=== PATIENT | female | born 1970 | race Caucasian/White ===

== ENCOUNTER 2018-03-31 03:06 | Emergency (ER) | payer OTHER ==
[~2018-03-31] VITALS: Ht 170.2 cm; Wt 61.2 kg
[~2018-03-31 03:06] MED LIST: ALBU90OI INH; CLON.1 PO; ESTROVEN ENERG1 EACH PO; GLIP5 PO; HYDACE10B PO; HYDHCL25 PO; LEVO750 PO; METF500 PO; METH10 PO; PREG100 PO; Pepcid40 MG PO; Zofran Odt4 MG SL
[2018-03-31] MEDS ORDERED: HYDMOR4 PO (03:20)
[2018-03-31] MEDS ORDERED: INSULANPEN (03:24)
[2018-03-31 03:25] LABS: Calcium, Ionized (POC) 1.13 mmol/L (1.10-1.46); Chloride (POC) 98 mmol/L (98-108); Creatinine (POC) 0.5 mg/dL (0.6-1.0); Glucose (ISTAT POC) 348 mg/dL (70-99); Potassium (POC) 3.4 mmol/L (3.5-5.5); Sodium (POC) 139 mmol/L (135-148); Total CO2 (POC) 29 mmol/L (21-32)
[2018-03-31] MEDS ORDERED: Humalog100 UNIT/1 (03:25)
== END 2018-03-31 03:34 | disposition home or self-care (01) ==
LOC: ER 03:06
PROVIDERS: Emergency Medicine
DX: E11.65 Type 2 diabetes mellitus with hyperglycemia (principal); Z77.29 Contact with and (suspected) exposure to other hazardous substances; F17.210 Nicotine dependence, cigarettes, uncomplicated; Z88.1 Allergy status to other antibiotic agents; Z79.899 Other long term (current) drug therapy; Z79.4 Long term (current) use of insulin
CPT/HCPCS: 80047; 85014; 99283

== ENCOUNTER 2020-08-31 19:22 | Emergency (ER) | payer OTHER ==
[~2020-08-31] VITALS: Ht 170.2 cm; Wt 55.8 kg
[~2020-08-31 19:22] MED LIST changes: +HYDMOR4 PO; +Humalog100 UNIT/1; +INSULANPEN
[2020-08-31] MEDS ORDERED: HYDMOR2 PO (19:54)
[2020-08-31] MEDS ORDERED: METH10 PO (19:54)
== END 2020-08-31 20:13 | disposition home or self-care (01) ==
LOC: ER 19:22
DX: Z76.0 Encounter for issue of repeat prescription (principal); Z88.1 Allergy status to other antibiotic agents; M54.2 Cervicalgia
CPT/HCPCS: 99281

== ENCOUNTER 2021-04-21 10:22 | Emergency (ER) | payer OTHER ==
[~2021-04-21] VITALS: Ht 170.2 cm; Wt 41.7 kg
[~2021-04-21 10:22] MED LIST changes: +HYDMOR2 PO
[2021-04-21] MEDS ORDERED: Norco 7.5-3251 EACH PO (11:34)
== END 2021-04-21 11:37 | disposition home or self-care (01) ==
LOC: ER 10:22
DX: Z76.0 Encounter for issue of repeat prescription (principal); F17.210 Nicotine dependence, cigarettes, uncomplicated; Z88.1 Allergy status to other antibiotic agents; Z79.4 Long term (current) use of insulin; Z79.899 Other long term (current) drug therapy
CPT/HCPCS: 99281

== ENCOUNTER 2021-09-24 22:51 | Inpatient (IN) | payer OTHER ==
[~2021-09-24] VITALS: Ht 170.2 cm; Wt 42.3 kg
[~2021-09-24 22:51] MED LIST changes: +HUMALOG KW100 UNIT/1 SC; -Humalog100 UNIT/1; -INSULANPEN; +INSULANPEN SC; +Norco 7.5-3251 EACH PO
[2021-09-25 01:11] LABS: Hematocrit 32.2 % (33.0-51.0); Hemoglobin 11.1 g/dL (11.5-16.0); Mean Corpuscular HGB 29.4 pg (26.0-34.0); Mean Corpuscular HGB Conc 34.5 g/dL (31.5-36.5); Mean Corpuscular Volume 85 fL (80-100); Mean Platelet Volume 9.9 fL (9.1-12.4); Platelet Count 225 K/mm3 (150-400); RDW Standard Deviation 40.3 fL (35.1-46.3); Red Blood Cell Count 3.78 M/mm3 (3.80-5.20); White Blood Cell Count 6.96 K/mm3 (4.00-11.30)
[2021-09-25 01:34] LABS: Ethanol (Alcohol), Blood, Med <3 mg/dL
[2021-09-25 01:43] LABS: Influenza A, PCR NEGATIVE (NEGATIVE); Influenza B, PCR NEGATIVE (NEGATIVE); Resp Syncytial Virus, PCR NEGATIVE (NEGATIVE); SARS-Cov-2 (COVID-19) PCR, MMC NEGATIVE (NEGATIVE)
[2021-09-25 01:44] LABS: Alanine Aminotransfer (ALT/SGP 12 U/L (12-78); Albumin, Blood 1.3 g/dL (3.4-5.0); Albumin/Globulin Ratio 0.3 (0.8-1.8); Alk Phos 110 U/L (50-136); Anion Gap 10 mmol/L (6-16); Aspartate Aminotrans (AST/SGOT 18 U/L (12-37); Bilirubin, Total 0.8 mg/dL (0.1-1.0); Blood Urea Nitrogen 8 mg/dL (8-24); CO2, Blood 31 mmol/L (21-32); Calcium, Blood 7.7 mg/dL (8.5-10.1); Chloride, Blood 97 mmol/L (98-108); Creatinine, Blood 0.45 mg/dL (0.40-1.00); Globulin, Blood 3.9 g/dL (2.2-4.0); Glomerular Filtration Rate 116 (60-); Glucose, Blood 286 mg/dL (70-99); Potassium, Blood 1.7 mmol/L (3.5-5.5); Sodium, Blood 138 mmol/L (136-145); Total Protein, Blood 5.2 g/dL (6.4-8.2)
[2021-09-25 01:46] LABS: BAND PERCENT MAN 21 % (0-8); BASOPHILS PERCENT MAN 0 % (0-2); EOSINOPHILS PERCENT MAN 0 % (0-6); LYMPHOCYTES ABSOLUTE MAN 0.27 K/mm3 (0.84-5.20); LYMPHOCYTES PERCENT MAN 4 % (21-46); MONOCYTES ABSOLUTE MAN 0.13 K/mm3 (0.16-1.47); MONOCYTES PERCENT MAN 2 % (4-13); NEUTROPHILS ABSOLUTE MAN 6.54 K/mm3 (1.96-9.15); SEG NEUTROPHILS PERCENT MAN 73 % (41-73); TOTAL CELLS COUNTED 100
[2021-09-25 01:58] LABS: Magnesium, Blood 1.4 mg/dL (1.6-2.4)
[2021-09-25] MEDS ORDERED: POTA10T PO (06:08)
[2021-09-25] MEDS ORDERED: TIZA4 PO ×2 (06:09→11:35)
[2021-09-25] MEDS ORDERED: OMEP20ER PO (06:10)
[2021-09-25 06:14] LABS: U Amphetamine Screen DETECTED; U Barbituate Screen Not Detected; U Benzodiazapine Screen Not Detected; U Buprenorphine Screen Not Detected; U Cannabinoids Screen Not Detected; U Cocaine Screen Not Detected; U Methadone Screen Not Detected; U Methamphetamine Screen DETECTED; U Opiates Screen Not Detected; U Oxycodone Screen Not Detected; U Phencyclidine Screen Not Detected; U Propoxyphene Screen Not Detected
--- NOTE | 2021-09-25 06:53 | NUR ---
ASSUMED CARE OF PATIENT AT APPROXIMATELY 0525 FROM ED RN RENA. PATIENT ARRIVED TO UNIT VIA STRETCHER; ONE ASSIST FROM ED TO PCU STRETCHER. PATIENT ALERT AND ORIENTED; PAINFUL CHRONICALLY. MANY WOUNDS CLEAN AND DRESSSED AFTER PHOTOS TAKEN AND PLACED IN CHART; PATIENT REPORTS WOUNDS SINCE MAR 2021. PATIENT REPORTS PAIN IN ABDOMEN FROM PANCREAS SURGERIES. PATIENT REPORTS NUMBNESS AND TINLGING FROM KNEES DOWN FROM DIABETES. PATIENT REPORTS HER SAWYER CORK SLABS TOLD HER TO EAT MUCH SHE WANTED AND NOT TO WORRY ABOUT HER BLOOD SUGAR; OUT OF MOST MEDS SINCE 2 WEEKS. PATIENT DENIES NAUSEA AND DIZZINESS. PIV INFUSING. PIV S/L. ADMISSION COMPLETE. PATIENT REPORTS SHE HAS DIARRHEA EVERY TIME SHE EATS; CLEAN UP AND ATTENDS IN PLACE. CALLED DR. CALDERÓN ABOUT LACTIC ACID 2.5 CALLED TO [facility]; ORDERS FOR 500 CC BOLUS OF LR THEN CONTINUE LR AT 100ML/HR. REPORTED PATIENT'S PAIN AND REQUEST FOR HOME MUSCLE RELAXER; ORDER FOR TRAMADOL PRN. REPORTED CBG 405; ORDER FOR INCREASE SCALE TO HIGH THEN COVER NOW. REPORTED PAIENT REQUEST FOR NICOTINE PATCH; ORDERS RECIEVED FOR PRN NICOTINE PATCH.
[2021-09-25 09:00] LABS: Calcium, Blood 7.5 mg/dL (8.5-10.1); Creatinine, Blood 0.4 mg/dL (0.40-1.00); Magnesium, Blood 1.6 mg/dL (1.6-2.4); Potassium, Blood 2.5 mmol/L (3.5-5.5)
[2021-09-25] MEDS ORDERED: PRENATAL TABLE1 EAC2 PO (11:37)
[2021-09-25] MEDS ORDERED: MULVITA PO (11:37)
[2021-09-25] MEDS ORDERED: ERGO50000 PO (11:38)
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
--- NOTE | 2021-09-25 19:26 | NUR ---
SHIFT SUMMARY FLUID BOLUS OF 500 MLS COMPLETED THIS MORNING. FLUIDS STOPPED PER DR. KATE DUE TO PT'S CONSISTENT PO FLUID INTAKE. ON ROOM AIR, TOLERATING WELL. PT REPOSITIONED THROUGHOUT SHIFT. PT HAD MULTIPLE LARGE, LOOSE, MUCOUSY STOOL THAT SATURATED THE BED. PT BECAME TEARFUL AT TIMES THIS SHIFT AFTER HAVING INCONTINENT STOOLS, STATING SHE FELT EXTREMELY EMBARASSED. THERPEUTIC LISTENING PROVIDED. PT DECLINED TO HAVE FULL DOSE OF SLIDING SCALE INSULIN AT ADMINISTRATION PRIOR TO LUNCH, 8 UNITS GIVEN INSTEAD OF FULL 12 UNITS PER PT REQUESTED. ORDERS FOR IMODIUM RECIEVED, GIVEN PER EMAR. PT COMPLAINED OF ABDOMINAL PAIN AND PAINFUL WOUNDS, MEDICATED PER EMAR.
--- NOTE | 2021-09-25 19:47 | NUR ---
CALLED DR. CALZADA TO REPORT PATIENT'S BP 82/66, LOWER COMPARED TO ALREADY SOFT BP; ORDERS RECIEVED FOR A 500 CC BOLUS OF NS FOLLOWED BY 150MLS/HR NS. ALSO RECIEVED ORDER FOR POTASSIUM RECHECK NOW.
--- NOTE | 2021-09-25 21:00 | NUR ---
ASSUMED CARE OF PATIENT AT APPROXIMATELY 1900 FROM IDANIA Kim RN. PATIENT ALERT AND ORINETED X4; FORGETFUL AT TIMES; IRRITABLE ABOUT CARE AT TIMES AND ANXIOUS AT TIMES. PATIENT REPORTS PAIN IN HER STOMACH THAT IS CHRONIC, WOUNDS, AND BACK. PATIENT REPORTS CHRONIC NUMBNESS AND TINGLING IN LEGS. PATIENT DENIES NAUSEA AND DIZZINESS. PATIENT COMPLAINS THAT FOOD IS TOO PLAIN AND SHE DOESNT GET ENOUGH; REQUESTS SNACKS FREQUENTLY; DIDNT FINISH FOOD TRAY. NSR ON TELE; OXYGEN SATURATION ABOVE 90% ON ROOM AIR. INCONTINENT OF STOOL AND URINE AT TIMES.
--- NOTE | 2021-09-25 21:15 | NUR ---
REPORTED POTASSIUM 3.5; ORDERS FOR ONE DOSE PO POTASSIUM 20 MEQ NOW
--- NOTE | 2021-09-25 22:29 | NUR ---
DR. CALZADA NOTIFIED PATIENT'S FIRST BLOOD CULTURES POSISTIVE FOR GRAM POSISTIVE COCCI IN CHAINS AND CURRENLTY RECIEIVING IV ROCEPHIN AND PO AZITHROMYCIN; CURRENT REGIMEN COVERS
[2021-09-26 04:29] LABS: Hemoglobin 10.2 g/dL (11.5-16.0); Mean Corpuscular HGB 29.7 pg (26.0-34.0); Mean Corpuscular Volume 87 fL (80-100); Mean Platelet Volume 10.4 fL (9.1-12.4); Platelet Count 217 K/mm3 (150-400); RDW Coefficient Variation 13.6 % (11.7-14.2); RDW Standard Deviation 43.4 fL (35.1-46.3); Red Blood Cell Count 3.44 M/mm3 (3.80-5.20); White Blood Cell Count 9.21 K/mm3 (4.00-11.30)
[2021-09-26 05:01] LABS: Albumin, Blood 1.1 g/dL (3.4-5.0); Albumin/Globulin Ratio 0.3 (0.8-1.8); Bilirubin, Total 0.3 mg/dL (0.1-1.0); Bun/Creatinine Ratio 24.5 (12.0-20.0); Calcium, Blood 7.8 mg/dL (8.5-10.1); Creatinine, Blood 0.37 mg/dL (0.40-1.00); Globulin, Blood 3.6 g/dL (2.2-4.0); Potassium, Blood 3.3 mmol/L (3.5-5.5); Thyroid Stimulating Hormone 1.01 uIU/mL (0.360-4.800); Total Protein, Blood 4.7 g/dL (6.4-8.2)
--- NOTE | 2021-09-26 05:52 | NUR ---
ASSUMED CARE @ 1900 PT IS ALERT AND ORIENTED X4. HR IN THE 70'S SR. LUNG SOUNDS CLEAR. PT'S POTASSIUM WENT UP TO 3.5, BUT HAS GONE DOWN TO 3.2. GLUCOSE 81. PT HAS SEVERAL WOUNDS ON LEGS AND ARMS THAT ARE SCABBED. PT ALSO HAS SEVERAL BED SORES. PT EXPERIENCES PAIN WHEN REPOSITIONING. PT HAD ONE LARGE BOWEL MOVEMENT AND IS INCONTINENT OF BOWEL AND URINE. PT ALSO STATES ABDOMINAL PAIN D/T CHRONIC PANCREATITIS.
--- NOTE | 2021-09-26 06:18 | NUR ---
PATIENT SLEPT ABOUT EIGHT HOURS LAST NIGHT. INCONTINENT OF ONE LARGE BM. NO OTHER ACUTE CHANGES.
--- NOTE | 2021-09-26 10:08 | NUR ---
CARE ASSUMPTION THIS RN ASSUMED CARE AT 0700 FROM ANTONIO RN AND STUDENT RN. VSS. TELE SR 96 BBB. SPO2 >90% ON RA. PATIENT IS ALERT AND ORIENTED X4. NEURO INTACT. PERRLA. PATIENT REPORTS NO PAIN AT THE BEGINNING OF MY SHIFT. WHEN DOING MORNING MED PASS AT AROUND 0845 PATIENT STATED SHE WAS HAVING PAIN, BUT PAIN MEDICATION WAS NOT ABLE TO BE GIVEN DUE TO TIME FRAME, SO PATIENT RECEIVED HER MUSCLE RELAXANT. SEE EMAR FOR DETAILS. PATIENT LUNG SOUNDS CLEAR/DIM. NO SHORTNESS OF BREATH. PATIENT REPORTS NO CHEST PAIN/PRESSURE. ABD SOFT NONTENDER. PATIENT SKIN HAS MULTIPLE WOUNDS THROUGHOUT. LEFT LEG HAS WOUNDS ON KNEE, ANKLE, BACK OF CALF, AND BOTTOM OF FOOT. RIGHT LEG HAS WOUNDS ON KNEE, ANKLE, AND BACK OF CALF. OPEN WOUNDS/SCABS ON UPPER EXTREMITEIS WELL. PHOTOS IN CHART. PATIENT IS INCONTIENT OF BOWEL AND BLADDER. PATIENT DID NO RECEIVE INSULIN THIS MORNING DUE TO BLOOD SUGAR AT 69 AND THEN [place]ON REASSESSMENT AFTER ORANGE JUICE AT 89. SPOKE WITH DIETICAN ABOUT THE PLAN OF CARE WITH HER DIET AND SHE WAS GOING TO SPEAK TO THE MD. CALL LIGTH IS WITHIN REACH AND BED IN LOWEST POSTION. SHAGGY USES CALL LIGHT APPROPRIATELY. WILL CONTINUE TO MONITOR AND PROVIDE CARE.
--- NOTE | 2021-09-26 17:09 | NUR ---
WOUND CARE ORDERS IN [facility]. pHOTOS AND ASSESSMENT IN HARD CHART. PT WOULD BENIFIT FROM BLE ATERIAL STUDIES AND DEBRIDEMENT
--- NOTE | 2021-09-26 18:16 | NUR ---
SHIFT SUMMARY PATIENT NEURO REMAINS INTACT. WOUND CARE NURSE TO SEE PATIENT AND PUT IN ORDERS FOR WOUND CARE ONCE DAILY. THIS RN CHANGED THE PATIENTS DRESSINGS AND CHARTED IT UNDER WOUND ASSESSMENT. UPDATE PICTURES ARE IN THE CHART. PATIENT HAS HAD TWO INCONTINENT BM TODAY. PATIENT SKIN IS VERY SENSITIVE AND IRRIATED IN HER SEA AREA CREAM APPLIED. PATIENT REPOSITIONED THROUGHOUT THE DAY TO HELP PREVENT SKIN BREAKDWON. PATIENT CALLS APPROPRIATELY WHEN NEEDING ASSISTANCE. NO ACUTE CHANGES THIS SHIFT. VSS. CALL LIGHT WITHIN REACH AND BED IN LOWEST POSITION. WILL CONTINUE TO MONITOR AND PROVIDE CARE UNTIL HAND OFF WITH NEXT SHIFT.
[2021-09-26 20:48] LABS: Source, Urine Foley catheter
[2021-09-26 20:56] LABS: Appearance, Urine Clear (Clear); Bilirubin, Urine Neg (Neg); Blood, Urine Neg (Neg); Color, Urine Yellow (P-Yellow); Glucose Qualitative, Urine Neg (Neg); Ketones, Urine Neg (Neg); Leukocyte Esterase, Urine Neg (Neg); Nitrite, Urine Pos (Neg); Protein, Urine Neg (Neg); Urobilinogen, Urine NORM (Normal)
[2021-09-26 21:02] LABS: Bacteria Rare /hpf; Hyaline Casts 0-2 /lpf (0-2); Red Blood Cells, Urine Not Seen /hpf (0-2); Squamous Epithelial Cells Rare /hpf (Few); White Blood Cells, Urine 0-2 /hpf (0-5)
[2021-09-26 21:03] LABS: Granular Casts 0-2 /lpf (0)
--- NOTE | 2021-09-26 22:49 | NUR ---
ASSUMPTION OF CARE Assumed care of pt at 1900. A/Ox4. Sleeping sitting up on bed. Over 95% on RA. No acute distress noted.
[2021-09-27 04:37] LABS: Hematocrit 34.2 % (33.0-51.0); Hemoglobin 11.3 g/dL (11.5-16.0); Mean Corpuscular HGB 29.1 pg (26.0-34.0); Mean Corpuscular Volume 88 fL (80-100); Mean Platelet Volume 10.3 fL (9.1-12.4); Platelet Count 200 K/mm3 (150-400); RDW Coefficient Variation 13.9 % (11.7-14.2); RDW Standard Deviation 44.6 fL (35.1-46.3); Red Blood Cell Count 3.88 M/mm3 (3.80-5.20); White Blood Cell Count 7.13 K/mm3 (4.00-11.30)
--- NOTE | 2021-09-27 06:04 | NUR ---
SHIFT SUMMARY Pt remained A/Ox4 t/o shift. Very drowsy. Reports no CP/pressure or SOB, but does report pain in coccyx and abdomen. Repositioning and meds per emar. Pt very weak and cachectic with a high appetite for food last night, reports "my doctor said to eat as much as I can, and we would just cover me with insulin". VSS. Maintains over 95% on RA, LS clear upper and dim at bases. SR on tele 70-80's. +2 radial pulses and +1 pedals. Abdomen is very firm and tender. Pt reports this occurs when her "pancreas acts up". Multiple large loose incontinent BM's, paste like consistency. Kpad applied for abdominal pain. Rizo order obtained this shift and placed, very good urine output, clear/yellow. Wounds have been documented, most wounds have clean edges, pt reports she doesn't pick at them though. More arms wounds bandaged this shift. Patient slept most of the shift between having snacks and brief changes. Will report to dayshift RN.
[2021-09-27 06:05] LABS: Percent Saturation 29.7 % (15.0-50.0)
[2021-09-27 06:12] LABS: Albumin, Blood 1.2 g/dL (3.4-5.0); Albumin/Globulin Ratio 0.3 (0.8-1.8); Bilirubin, Total 0.2 mg/dL (0.1-1.0); Bun/Creatinine Ratio 12.8 (12.0-20.0); Creatinine, Blood 0.39 mg/dL (0.40-1.00); Globulin, Blood 3.7 g/dL (2.2-4.0); Total Protein, Blood 4.9 g/dL (6.4-8.2)
--- NOTE | 2021-09-27 18:28 | NUR ---
PT IS DUMPING STOOL WITHIN FIVE MINUTES OF EATING INTO RECTAL TUBE. WHOLE UNDIGESTED FOOD SEEN IN BAG. STOOL IS VERY LOOSE, COLORING FROM DRINK PRODUCTS STILL DISCERNABLE IN RECTAL TUBE WELL. DR. KATE AWARE, PT ON ENZYMES.
[2021-09-28 04:12] LABS: Hematocrit 33.4 % (33.0-51.0); Hemoglobin 10.8 g/dL (11.5-16.0); Mean Corpuscular HGB Conc 32.3 g/dL (31.5-36.5); Mean Corpuscular Volume 90 fL (80-100); Mean Platelet Volume 10.4 fL (9.1-12.4); Platelet Count 177 K/mm3 (150-400); RDW Standard Deviation 45.6 fL (35.1-46.3); Red Blood Cell Count 3.73 M/mm3 (3.80-5.20); White Blood Cell Count 5.54 K/mm3 (4.00-11.30)
[2021-09-28 04:34] LABS: Albumin, Blood 1.2 g/dL (3.4-5.0); Albumin/Globulin Ratio 0.3 (0.8-1.8); Bilirubin, Total 0.2 mg/dL (0.1-1.0); Bun/Creatinine Ratio 5.9 (12.0-20.0); Calcium, Blood 6.7 mg/dL (8.5-10.1); Creatinine, Blood 0.34 mg/dL (0.40-1.00); Globulin, Blood 3.7 g/dL (2.2-4.0); Potassium, Blood 3.6 mmol/L (3.5-5.5); Total Protein, Blood 4.9 g/dL (6.4-8.2)
--- NOTE | 2021-09-28 05:19 | NUR ---
SHIFT SUMMARY Patient A/Ox4, more lethargic today. Rectal tube placed during dayshift. Draining undigested food particles and liquid. Maintenance fluids DC'd on day shift due to FVO (periorbital edema, crackles). Albumin is 1.2. Maintained above 95% on RA. BLE wound dressings changed this shift. Imodium given q4, with no positive effect. Patient expressed that at home she takes 8 Imodium at a time. VSS. Patient still eating/drinking with good appetite. Will report to dayshift RN.
--- NOTE | 2021-09-28 07:49 | NUR ---
ASSUME CARE: I assumed care of this patient at 0700.
--- NOTE | 2021-09-28 09:13 | NUR ---
UPDATE: Dr Awan roundharitha on pt. Discussed case with him and updated him on pt social situation. Verbal order for Mag, phos, and PT.
--- NOTE | 2021-09-28 09:22 | NUR ---
UPDATE: Pt complaining of oral pain and "thrush". She received oral liquid medical upon admission which helped her symptoms. Will notify provider.
--- NOTE | 2021-09-28 09:47 | NUR ---
PHONE CALL: Informed Dr Awan of pt's complaints of oral pain; verbal order for nystatin.
[2021-09-28 10:12] LABS: Magnesium, Blood 1.1 mg/dL (1.6-2.4); Phosphorus, Blood 1.9 mg/dL (2.5-4.9)
--- NOTE | 2021-09-28 12:10 | NUR ---
TELEMETRY: Telemetry reordered for electrolyte infusion. Pt declines to wear telemetry patches for infusion.
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
[2021-09-29 03:54] LABS: BASOPHILS ABSOLUTE AUTO 0.01 K/mm3 (0.00-0.23); BASOPHILS PERCENT AUTO 0 % (0-2); EOSINOPHILS ABSOLUTE AUTO 0.03 K/mm3 (0.00-0.68); EOSINOPHILS PERCENT AUTO 1 % (0-6); Hematocrit 30.7 % (33.0-51.0); Hemoglobin 9.9 g/dL (11.5-16.0); Mean Corpuscular HGB 28.8 pg (26.0-34.0); Mean Corpuscular HGB Conc 32.2 g/dL (31.5-36.5); Mean Corpuscular Volume 89 fL (80-100); Mean Platelet Volume 10.3 fL (9.1-12.4); Platelet Count 180 K/mm3 (150-400); RDW Coefficient Variation 13.6 % (11.7-14.2); RDW Standard Deviation 44.5 fL (35.1-46.3); Red Blood Cell Count 3.44 M/mm3 (3.80-5.20); White Blood Cell Count 5.77 K/mm3 (4.00-11.30)
[2021-09-29 03:56] LABS: IMMATURE GRAN ABSOLUTE AUTO 0.03 K/mm3 (0.00-0.10); IMMATURE GRAN PERCENT AUTO 1 % (0-1); LYMPHOCYTES ABSOLUTE AUTO 1.87 K/mm3 (0.84-5.20); LYMPHOCYTES PERCENT AUTO 32 % (21-46); MONOCYTES ABSOLUTE AUTO 0.18 K/mm3 (0.16-1.47); MONOCYTES PERCENT AUTO 3 % (4-13); NEUTROPHILS ABSOLUTE AUTO 3.65 K/mm3 (1.96-9.15); NEUTROPHILS PERCENT AUTO 63 % (41-73)
[2021-09-29 04:17] LABS: Albumin, Blood 1.1 g/dL (3.4-5.0); Albumin/Globulin Ratio 0.3 (0.8-1.8); Bilirubin, Total 0.4 mg/dL (0.1-1.0); Bun/Creatinine Ratio 5.6 (12.0-20.0); Calcium, Blood 6.7 mg/dL (8.5-10.1); Creatinine, Blood 0.36 mg/dL (0.40-1.00); Globulin, Blood 3.8 g/dL (2.2-4.0); Magnesium, Blood 1.5 mg/dL (1.6-2.4); Phosphorus, Blood 1.7 mg/dL (2.5-4.9); Potassium, Blood 3.7 mmol/L (3.5-5.5); Total Protein, Blood 4.9 g/dL (6.4-8.2)
--- NOTE | 2021-09-29 05:42 | NUR ---
SHIFT SUMMARY Patients SBP 80-90's, changing from previously few days of SBP 120-130's. Patient's Flexiseal replaced, still draining large amounts of undigested food. High appetite. Episodes of desatting to 70's while sleeping, 2L NC placed for sleep. Patient was able to ambulate safely while bed change was done. Still c/o abdominal pain while using Kpad, and meds per emar. LS clear on top and dim at bases. Still unable to produce sputum, but has nonproductive cough. Urinary catheter draining light/yellow urine to gravity. Mag 1.5 this morning, notified and orders received. Will report to owen AMADOR.
--- NOTE | 2021-09-29 18:31 | NUR ---
SHIFT SUMMARY: PT A&Ox4 T/OUT SHIFT, MAINTAINS O2 SATS >92% ON RA WHILE AWAKE, DENIES SOB OR CP. VS STABLE. RECTAL TUBE DISLODGED x2 AND REPLACED, DRAINING BROWN LIQUID WITH LARGE QUANTITY OF UNDIGESTED FOOD PARTICLES. PT WITH HIGH AMOUNT PO INTAKE, DISPATCHER SERVICE OR WORK ORDERS PPN WHICH HAS BEEN STARTED PER ORDERS, BLOOD SUGARS HAVE BEEN ELEVATED THIS AFTERNOON EVEN BEFORE IV NUTRITION INITIATED, PT NOTIFIED AND STATES "IT'S OKAY, WE WILL JUST COVER IT WITH INSULIN" AND CONTINUES TO REQUEST FOOD/DRINKS. PT MEDICATED PER EMAR FOR C/O ABD PAIN, ANXIETY. INDWELLING ORTIZ CONTINUES PATENT, DRAINING CLEAR YELLOW COLORED URINE TO GRAVITY. PT ASSISTS W/TURNS AND FREQUENT CLEANING. AT THIS TIME, PT RESTING IN BED WITH DINNER TRAY. CALL LIGHT WITHIN REACH. WILL CONTINUE TO MONITOR AND TREAT ACCORDINGLY UNTIL CHANGE OF SHIFT.
--- NOTE | 2021-09-30 04:19 | NUR ---
SHIFT SUMMARY NO ACUTE CHANGES THIS SHIFT. PT CAN BE IRRITABLE TOWARDS STAFF, BUT REMAINS COOPERATIVE. DENIES SOB AND ON 1L VIA NC WHILE ASLEEP, OTHERWISE SATS STABLE ON RA. RECTAL TUBE DISLODGED AT START OF SHIFT, BUT HAS REMAINED INTACT SINCE REPLACED. LARGE AMOUNTS OF LIQUID BROWN STOOL WITH PARTIALLY DIGESTED PARTICLES NOTED. ORTIZ DRAINING CLEAR YELLOW URINE. TPN INFUSING PER ORDERS. PT HAS BEEN INDEPENDENTLY REPOSITIONING SELF IN BED. USES CALL LIGHT APPROPRIATELY.
[2021-09-30 05:55] LABS: Hematocrit 35.4 % (33.0-51.0); Hemoglobin 11.4 g/dL (11.5-16.0); Mean Corpuscular HGB 29.2 pg (26.0-34.0); Mean Corpuscular HGB Conc 32.2 g/dL (31.5-36.5); Mean Corpuscular Volume 91 fL (80-100); Mean Platelet Volume 10.8 fL (9.1-12.4); Platelet Count 245 K/mm3 (150-400); RDW Coefficient Variation 13.5 % (11.7-14.2); RDW Standard Deviation 44.8 fL (35.1-46.3); Red Blood Cell Count 3.91 M/mm3 (3.80-5.20); White Blood Cell Count 4.49 K/mm3 (4.00-11.30)
[2021-09-30 06:32] LABS: BAND PERCENT MAN 2 % (0-8); BASOPHILS PERCENT MAN 0 % (0-2); EOSINOPHILS ABSOLUTE MAN 0.04 K/mm3 (0.00-0.68); EOSINOPHILS PERCENT MAN 1 % (0-6); LYMPHOCYTES PERCENT MAN 29 % (21-46); METAMYELOCYTE ABSOLUTE MAN 0.04 K/mm3 (0.00-0.00); METAMYELOCYTE PERCENT MAN 1 % (0-0); MONOCYTES ABSOLUTE MAN 0.08 K/mm3 (0.16-1.47); MONOCYTES PERCENT MAN 2 % (4-13); SEG NEUTROPHILS PERCENT MAN 65 % (41-73); TOTAL CELLS COUNTED 100
[2021-09-30 06:41] LABS: Alanine Aminotransfer (ALT/SGP 11 U/L (12-78); Albumin, Blood 1.3 g/dL (3.4-5.0); Albumin/Globulin Ratio 0.3 (0.8-1.8); Alk Phos 213 U/L (50-136); Anion Gap 1 mmol/L (6-16); Aspartate Aminotrans (AST/SGOT 17 U/L (12-37); Bilirubin, Total 0.2 mg/dL (0.1-1.0); Blood Urea Nitrogen 4 mg/dL (8-24); Bun/Creatinine Ratio 10.8 (12.0-20.0); CO2, Blood 39 mmol/L (21-32); Chloride, Blood 100 mmol/L (98-108); Creatinine, Blood 0.37 mg/dL (0.40-1.00); Globulin, Blood 4.2 g/dL (2.2-4.0); Glomerular Filtration Rate 121 (60-); Glucose, Blood 170 mg/dL (70-99); Magnesium, Blood 2.2 mg/dL (1.6-2.4); Phosphorus, Blood 2.7 mg/dL (2.5-4.9); Potassium, Blood 5.1 mmol/L (3.5-5.5); Sodium, Blood 140 mmol/L (136-145); Total Protein, Blood 5.5 g/dL (6.4-8.2); Triglycerides 64 mg/dL (30-160)
--- NOTE | 2021-09-30 17:54 | NUR ---
SHIFT SUMMARY: PT CONTINUES A&Ox4, MAINTAINS O2 SATS >92% ON RA, VSS. PT W/ELEVATED BLOOD SUGAR T/OUT DAY, DR ZHANG NOTIFIED x2 WITH ORDER CHANGES PLACED. PT ENCOURAGED TO MAKE DIFFERENT FOOD CHOICES BUT DOES NOT APPEAR RECEPTIVE TO MAKING CHANGES AT THIS TIME, CONTINUES TO ORDER DOUBLE PORTIONS AND HIGH CARB CONTENT ITEMS WELL REQUEST HIGH CARB SNACKS AND BECOMES IRRITABLE TOWARDS STAFF WHEN ENCOURAGED TO MAKE DIFFERENT CHOICES. RECTAL TUBE LEAKS OFTEN, DISLODGES EASILY AFTER PT CONSUMES LARGE AMOUNT OF FOOD. TPN INFUSING PER ORDERS. PT REPOSITIONS SELF IN BED W/MINIMAL ASSISTANCE, AMBULATED IN HALLWAY TODAY WITH PT. WOUND CARE/DRESSING CHANGES HAVE BEEN COMPLETED PER ORDERS. PT TOLERATES WELL. WILL CONTINUE TO MONITOR AND TREAT ACCORDINGLY UNTIL CHANGE OF SHIFT.
--- NOTE | 2021-09-30 19:01 | NUR ---
UPDATE: PT RECTAL TUBE CONTINUES TO LEAK AND REQUIRING FREQUENT CHANGES. PER PT REQUEST, RECTAL TUBE REMOVED AT THIS TIME. WILL REPORT TO ONCOMING RN ABOUT POSSIBLE NEED TO REPLACE TUBE AFTER PT FINISHES DINNER.
--- NOTE | 2021-09-30 21:52 | NUR ---
Assumed care 1900. Pt is A&O, anxious. Tearful at times. PRN hydroxazine given for anxiety. VSS on RA. TPN is running in right upper arm. BM right after dinner, incontinent. Will continue to monitor. 2100 cbg 411, scheduled meds given (lispro 6 units and glargine 15 units), MD notified and no new orders added.
--- NOTE | 2021-09-30 22:28 | NUR ---
Pt is not coughing anything up, sputum sample was d/c.
[2021-10-01 07:20] LABS: BASOPHILS ABSOLUTE AUTO 0.01 K/mm3 (0.00-0.23); BASOPHILS PERCENT AUTO 0 % (0-2); EOSINOPHILS ABSOLUTE AUTO 0.01 K/mm3 (0.00-0.68); EOSINOPHILS PERCENT AUTO 0 % (0-6); Hematocrit 28.8 % (33.0-51.0); Hemoglobin 9.3 g/dL (11.5-16.0); Mean Corpuscular HGB 29.4 pg (26.0-34.0); Mean Corpuscular HGB Conc 32.3 g/dL (31.5-36.5); Mean Corpuscular Volume 91 fL (80-100); Mean Platelet Volume 10.5 fL (9.1-12.4); Platelet Count 249 K/mm3 (150-400); RDW Coefficient Variation 13.2 % (11.7-14.2); RDW Standard Deviation 43.8 fL (35.1-46.3); Red Blood Cell Count 3.16 M/mm3 (3.80-5.20); White Blood Cell Count 4.31 K/mm3 (4.00-11.30)
[2021-10-01 07:23] LABS: IMMATURE GRAN ABSOLUTE AUTO 0.09 K/mm3 (0.00-0.10); IMMATURE GRAN PERCENT AUTO 2 % (0-1); LYMPHOCYTES ABSOLUTE AUTO 1.19 K/mm3 (0.84-5.20); LYMPHOCYTES PERCENT AUTO 28 % (21-46); MONOCYTES ABSOLUTE AUTO 0.23 K/mm3 (0.16-1.47); MONOCYTES PERCENT AUTO 5 % (4-13); NEUTROPHILS ABSOLUTE AUTO 2.78 K/mm3 (1.96-9.15); NEUTROPHILS PERCENT AUTO 65 % (41-73)
[2021-10-01 07:40] LABS: Magnesium, Blood 1.7 mg/dL (1.6-2.4)
--- NOTE | 2021-10-01 08:13 | NUR ---
DR. ZHANG NOTIFIED OF PT'S ELEVATED BLOOD GLUCOSE TAKEN PRIOR TO BREAKFAST.
[2021-10-01 08:38] LABS: Albumin, Blood 1.2 g/dL (3.4-5.0); Albumin/Globulin Ratio 0.3 (0.8-1.8); Bilirubin, Total 0.4 mg/dL (0.1-1.0); Bun/Creatinine Ratio 24.7 (12.0-20.0); Calcium, Blood 7.5 mg/dL (8.5-10.1); Creatinine, Blood 0.32 mg/dL (0.40-1.00); Phosphorus, Blood 2.4 mg/dL (2.5-4.9); Potassium, Blood 5.5 mmol/L (3.5-5.5); Total Protein, Blood 5.2 g/dL (6.4-8.2)
--- NOTE | 2021-10-01 17:44 | NUR ---
SHIFT SUMMARY NO ACUTE EVENTS THIS SHIFT, VSS. PT ON ROOM AIR, TOLERATING WELL. PT ABLE TO STAND AND WALK TO USE STANDING WEIGHT WITH CANE. PT STATED DISSATISFACTION WITH EACH MEAL TRAY, STATING THAT SHE SHOULD BE RECEIVING DOUBLE PORTIONS. PER DR. ZHANG, PT WAS INFORMED THAT LARGE PORTIONS WERE ALREADY OREDERED AND WOULD REMAIN IN PLACE. THIS AFTERNOON PATIENT WAS DISPLEASED WITH A SNACK TRAY BROUGHT TO HER AND PROCEEDED TO CUSS AT STAFF AND TO HERSELF WHEN STAFF LEFT THE ROOM FOR AN ADDITIONAL 10-15 MINUTES. PT BECAME ANXIOUS AND TEARFUL AT TIMES, THERAPUETIC LISTENING PROVIDED. PT HAD SEVERAL LARGE BOWEL MOVEMENTS TODAY, LOOSE AND LIQUID. PT REPOSITIONED SELF THROUGHOUT THE DAY AND ASSISTED IN REPOSITIONING AND GETTING UP TO RECLINER BY STAFF.
[2021-10-01 21:08] LABS: Bun/Creatinine Ratio 31.9 (12.0-20.0); Calcium, Blood 7.5 mg/dL (8.5-10.1); Creatinine, Blood 0.31 mg/dL (0.40-1.00); Potassium, Blood 4.6 mmol/L (3.5-5.5)
--- NOTE | 2021-10-01 21:50 | NUR ---
Assumed care 1900. Pt is A&O, anxious at times. VSS on RA. Wound care completed on all wounds. One incontinet BM liquid. Will continue to monitor. Noticed big drop in Na from yesterday and AM labs, notified and chemestry panel was orderd.
[2021-10-02 03:48] LABS: Hematocrit 27.5 % (33.0-51.0); Hemoglobin 8.8 g/dL (11.5-16.0); Mean Corpuscular HGB 29.1 pg (26.0-34.0); Mean Corpuscular Volume 91 fL (80-100); Platelet Count 300 K/mm3 (150-400); RDW Coefficient Variation 13.3 % (11.7-14.2); RDW Standard Deviation 43.5 fL (35.1-46.3); Red Blood Cell Count 3.02 M/mm3 (3.80-5.20); White Blood Cell Count 5.22 K/mm3 (4.00-11.30)
[2021-10-02 04:03] LABS: Bun/Creatinine Ratio 30.2 (12.0-20.0); Calcium, Blood 7.3 mg/dL (8.5-10.1); Creatinine, Blood 0.33 mg/dL (0.40-1.00); Magnesium, Blood 1.8 mg/dL (1.6-2.4); Phosphorus, Blood 2.1 mg/dL (2.5-4.9); Potassium, Blood 4.4 mmol/L (3.5-5.5)
[2021-10-02 04:14] LABS: BAND PERCENT MAN 4 % (0-8); BASOPHILS PERCENT MAN 0 % (0-2); EOSINOPHILS PERCENT MAN 0 % (0-6); LYMPHOCYTES % ATYPICAL MANUAL 1 % (0-0); LYMPHOCYTES ABSOLUTE MAN 0.93 K/mm3 (0.84-5.20); LYMPHOCYTES PERCENT MAN 17 % (21-46); MONOCYTES ABSOLUTE MAN 0.26 K/mm3 (0.16-1.47); MONOCYTES PERCENT MAN 5 % (4-13); MYELOCYTE PERCENT MAN 2 % (0-0); NEUTROPHILS ABSOLUTE MAN 3.91 K/mm3 (1.96-9.15); SEG NEUTROPHILS PERCENT MAN 71 % (41-73); TOTAL CELLS COUNTED 100
--- NOTE | 2021-10-02 04:33 | NUR ---
Business Development Specialist Note: A&O, anxious at times and prn hydroxyzine given per JUL. VSS on . Wound care completed on all wounds using wound care orders. Pt took a walk with staff overnight. Pt did not sleep at all overnight. Pt asked for frequent snacks overnight. Education given on high blood sugars and food options, pt became upset several times regarding this. CBG 401 with night time check. Scheduled glargine and sliding scale given per orders. MD notified and no new orders at this time. Glucose in morning labs had dropped into 200s. Pt complained of pain in ribs and stomach, prn muscle relaxer & tylenol given as well as scheduled roxicodone. PRN nicotine patch applied. A couple episodes of incontinent stool mostly liquid overnight. Powerglide placed in left upper arm by charge nurse. PPN running at 95ml/hr per orders.
--- NOTE | 2021-10-02 12:01 | NUR ---
REPORT GIVEN TO NICA AMADOR ON MEDICAL.
--- NOTE | 2021-10-02 19:09 | NUR ---
SHIFT SUMMARY PT CAME TO FLOOR FROM PCU AT 1245. MADE COMFORTBLE & ORIENTED TO THE ROOM. RECEIVED REPORT FROM PCU NURSE IDANIA. COCCYX WOUND AND R FOOT WOUND RE-DRESSED PER WOUND CARE ORDERS. VSS. PT WITH LOW GRADE TEMP, MEDICATED WITH TYLENOL PER MD ORDERS. PLAN IS POSSIBLE HOSPICE.
[2021-10-03 06:00] LABS: Albumin, Blood 1.3 g/dL (3.4-5.0); Albumin/Globulin Ratio 0.3 (0.8-1.8); Bilirubin, Total 0.1 mg/dL (0.1-1.0); Calcium, Blood 7.6 mg/dL (8.5-10.1); Creatinine, Blood 0.47 mg/dL (0.40-1.00); Globulin, Blood 3.8 g/dL (2.2-4.0); Phosphorus, Blood 2.4 mg/dL (2.5-4.9); Potassium, Blood 4.1 mmol/L (3.5-5.5); Total Protein, Blood 5.1 g/dL (6.4-8.2)
[2021-10-03 06:59] LABS: BAND PERCENT MAN 4 % (0-8); BASOPHILS PERCENT MAN 0 % (0-2); EOSINOPHILS PERCENT MAN 0 % (0-6); LYMPHOCYTES PERCENT MAN 27 % (21-46); MONOCYTES PERCENT MAN 2 % (4-13); MYELOCYTE PERCENT MAN 3 % (0-0); SEG NEUTROPHILS PERCENT MAN 64 % (41-73); TOTAL CELLS COUNTED 100
[2021-10-03 07:02] LABS: BASOPHILS ABSOLUTE AUTO 0.02 K/mm3 (0.00-0.23); BASOPHILS PERCENT AUTO 1 % (0-2); EOSINOPHILS ABSOLUTE AUTO 0.01 K/mm3 (0.00-0.68); EOSINOPHILS PERCENT AUTO 0 % (0-6); Hematocrit 24.1 % (33.0-51.0); Hemoglobin 7.9 g/dL (11.5-16.0); LYMPHOCYTES ABSOLUTE MAN 1.06 K/mm3 (0.84-5.20); MONOCYTES ABSOLUTE MAN 0.07 K/mm3 (0.16-1.47); MYELOCYTE ABSOLUTE MAN 0.11 K/mm3 (0.00-0.00); Mean Corpuscular HGB 29.7 pg (26.0-34.0); Mean Corpuscular HGB Conc 32.8 g/dL (31.5-36.5); Mean Corpuscular Volume 91 fL (80-100); Mean Platelet Volume 9.8 fL (9.1-12.4); NEUTROPHILS ABSOLUTE MAN 2.67 K/mm3 (1.96-9.15); Platelet Count 294 K/mm3 (150-400); RDW Coefficient Variation 13.5 % (11.7-14.2); RDW Standard Deviation 44.6 fL (35.1-46.3); Red Blood Cell Count 2.66 M/mm3 (3.80-5.20); White Blood Cell Count 3.93 K/mm3 (4.00-11.30)
[2021-10-03 07:03] LABS: IMMATURE GRAN ABSOLUTE AUTO 0.13 K/mm3 (0.00-0.10); IMMATURE GRAN PERCENT AUTO 3 % (0-1); LYMPHOCYTES ABSOLUTE AUTO 1.08 K/mm3 (0.84-5.20); LYMPHOCYTES PERCENT AUTO 28 % (21-46); MONOCYTES ABSOLUTE AUTO 0.25 K/mm3 (0.16-1.47); MONOCYTES PERCENT AUTO 6 % (4-13); NEUTROPHILS ABSOLUTE AUTO 2.44 K/mm3 (1.96-9.15); NEUTROPHILS PERCENT AUTO 62 % (41-73)
--- NOTE | 2021-10-03 16:49 | NUR ---
SHIFT SUMMARY- PT ALERT AND ORIENTED. PT DOES NOT GET UP OUT OF BED. ORTIZ CATH DC'D THIS AFTERNOON. WITH ALL THE LOOSE STOOLS IT HAS BEEN DIFFICULT TO KEEP STOOL OFF OF THE CATHETER. DR KINCAID CAME TO SEE THE PT EARLIER IN THE DAY AND SAT AND LISTENED TO ALL OF THE PT CONCERNS. PT DID REQUEST THIS EVENING THAT THE DOCTOR COME BACK AND TELL HER WHAT THE PLAN IS FOR DISCHARGE. THIS RN WAS UNABLE TO BE PRESENT FOR THE WHOLE ENCOUNTER IT WAS A BIT LENGTHY. SPOKE TO CARE MANAGEMENT ABOUT IT, THEY WERE UNABLE TO REVIEW AT THIS TIME AND SAY WHAT THE PLAN IS WITH CERTAINTY. PT IS AWARE THE DR WILL SEE HER AGAIN TOMORROW. WOUND CARE WAS PERFORMED WHEN THE PT HAD A BM AFTER LUNCH. PRN MEDS GIVEN NEEDED FOR PAIN. PT WAS DIRTY WITH STOOL BUT TOLD STAFF SHE WAS BUSY WITH A PHONE CALL AND WANTED TO WAIT UNTIL THE PHONE CALL WAS DONE. THE PT CONTINUED HER CALL FOR HOURS, UNTIL STAFF INSISTED SHE COULD NOT WAIT ANY LONGER. PT WAS AWARE SHE WAS SITTING IN STOOL T/O THIS TIME.
--- NOTE | 2021-10-03 17:16 | NUR ---
DRESSING CHANGE - PT HAD A LARGE, LOOSE INCONENT STOOL, SOME OF WHICH CONTAMINATED THE OLD MEPILEX PADS. PADS AND CALCIUM ALGINATE WERE REMOVED, WOUNDS WERE CLEANSED, CALCIUM ALGINATE WAS REPLACED. NEW PHOTOS WERE TAKEN OF BOTH KNEES AND THE BOTTOM OF THE R FOOT. PT IS REQUESTING A NEW PHOTO BE TAKEN OF THE COCCYX, WILL TAKE THAT PHOTO AT NEXT CHANGE.
--- NOTE | 2021-10-04 05:00 | NUR ---
SHIFT SUMMARY PT IS A 51 Y/O FEMALE, ADMITTED FOR PNA. SHE IS A&O X 4, IRRITABLE WITH STAFF AT TIMES. 1PA TO THE BATHROOM, INCONTINENT OF BOWEL AND BLADDER WITH DUMPING SYNDROME NOTED. MULTIPLE EPISODES OF DIARRHEA NOTED. PT REPORTED PAIN THROUGH THE NIGHT, AND STATED THAT THE CURRENT SCHEDULED PAIN MED REGIMEN "ISN'T GOING TO WORK IF I DON'T GET ANYTHING THROUGH THE NIGHT". NO C/O NAUSEA OR SOB. VITAL SIGNS STABLE. NO OTHER ACUTE CHANGES IN PT CONDITION NOTED DURING THE NIGHT. WILL CONTINUE TO MONITOR AND TREAT PER EMAR UNTIL HAND OFF TO DAY SHIFT RN.
--- NOTE | 2021-10-04 11:02 | NUR ---
PT DID NOT HAVE ORTIZ CATHETER IN PLACE THIS AM WITH ATTENDS CHANGE. NOC RN REPORTED ORTIZ CATHETER REMOVED YESTERDAY ON DAY SHIFT. DOCUMENTATION COMPLETED TODAY.
--- NOTE | 2021-10-04 17:53 | NUR ---
PT DISCONNECTED FROM PPN ON HER REQUEST. SHE REPORTS FAMILY IS COMING IN TO TAKE HER ON A WALK IN THE HOSPITAL IN A WHEELCHAIR. PT INFORMED SHE CANNOT LEAVE HOSPITAL GROUNDS AND NEEDS TO BE BACK IN ROOM WITHIN HOUR. RUBEN MACE.
--- NOTE | 2021-10-04 18:04 | NUR ---
SHIFT SUMMARY: PT A/O X 4 BEDREST AT THIS TIME. PT CONTINUES TO HAVE CONTINUOUS LOOSE XXXLARGE STOOLS. PT CONTINUES TO HAVE RASH AREA ON SEA VAGINAL AND COCCYX WOUND. NYSTATIN ORDERED REQUESTED. PT ALSO EATS THROUGHOUT THE DAY AND DOES NOT FOLLOW RECOMMENDATIONS TO LIMIT SUGAR INTAKE. BS HAVE BEEN ELEVATED. HGB 7.9. DR. KINCAID AWARE. BM SHOWS NO SIGNS OF BLOOD, NO BLACK TARRY STOOLS. PT HAS LIGHT BROWN SOFT STOOL MIXED WITH WATERY STOOL MIXED WITH UNDIGESTED FOOD. CARROTS OBSERVED IN STOOL. PT HAS NOP CONTROL OF BOWEL OR BLADDER. SKIN SORES WHICH APPEARS TO BE PICK RINALDI ALL OVER HER BODY, MOST DRIED AND OPEN TO AIR WITHOUT S/S OF INFECTION. COCCYX WOUND STAGE 3 WITH BROWN SLOUGH. BARRIER CREAM APPLIED THICK DURING ATTENDS CHANGES. PT HAD MEPILEX BUT STOOL CONTINUES TO REACH WOUND DESPITE BEING APPLIED OVER WOUND TO PROTECT. HEEL PROTECTORS ON. PT REPORTED HER FAMILY WAS GOING TO TAKE HER ON A WALK AROUND HOSPITAL IN . SHE REQUESTED SHE BE DISCONNECTED FROM PPN. ADVISED PT SHE CANNOT LEAVE HOSPITAL CAMPUS AND SHE HAS TO BE BACK IN HER ROOM WITHIN THE HOUR.
--- NOTE | 2021-10-05 03:30 | NUR ---
SHIFT SUMMARY: PATIENT IS ANXIOUS, MICRO-MANAGES ALL CARE. REFUSES T&P IS EATING, EATS ALMOST CONSTANTLY. HAS NOT SLEPT OF 0330, ONLY CAT NAPS. MAKES LISTS, FOR CAREGIVERS, OF ALL THE ITEMS SHE REQUIRES EACH TIME STAFF ENTERS ROOM. PATIENT BECAME HIGHLY ANXIOUS AND IRRITATED WHEN SHE WAS TOLD NEXT DOSE OF ZANAFLEX WAS AT 0900. "I CAN'T GO UNTIL THE MORNING WITHOUT IT". DR CHONG WAS NOTIFIED AND A NOW DOSE WAS ORDERED AND MED WAS GIVEN WITH GOOD EFFECT. LATER IN THE SHIFT PATIENT REQUESTED VISTARIL FOR ANXIETY, MED WAS GIVEN WITH FAIR EFFECT. VSS. WOUND CARE TO COCCYX AND R KNEE WAS DONE AND MEPILEXES REPLACED.
[2021-10-05 07:39] LABS: Albumin, Blood 1.7 g/dL (3.4-5.0); Anion Gap 2 mmol/L (6-16); Blood Urea Nitrogen 9 mg/dL (8-24); CO2, Blood 34 mmol/L (21-32); Calcium, Blood 7.8 mg/dL (8.5-10.1); Chloride, Blood 100 mmol/L (98-108); Creatinine, Blood 0.43 mg/dL (0.40-1.00); Glomerular Filtration Rate 117 (60-); Glucose, Blood 157 mg/dL (70-99); Phosphorus, Blood 3.1 mg/dL (2.5-4.9); Potassium, Blood 4.2 mmol/L (3.5-5.5); Sodium, Blood 136 mmol/L (136-145)
--- NOTE | 2021-10-05 20:09 | NUR ---
SUMMARY- PT A/O X4, DIRECTS HER CARE. TOLERATING FOOD AND FLUIDS, HAS A VORACIOUS APPETITE AND EATS DOUBLE PORTIONS, AWARE OF EATING MOSTLY PROTIEN AND AVOIDING CARBS. BLOOD SUGARS FLUXUATE GREATLY. COVERED WITH SS NOVOLOG AND LONG ACTING PM. HAS DUMPING SYNDROME AND HAD 2 X LG BMS WITH A LOT OF UNDIGESTED FOOD. SKIN IN GROIN AND SEA HAS RED RASH AND EXCORIATION. CLEANSED EACH TIME AND APPLIED CALAZYME AND MICONAZOLE. MEPILEX TO COCCYX DECUB. PT'S BACK AND JAW PAIN CONROLLED WITH OXYCODONE AND ZANAFLEX. USES CALL LIGHT AND IS COOPERATIVE. PREFERS TO DIRECT HER OWN CARE, AND DOES WELL WHEN STAFF FOLLOW HER LEAD. OCCASIONAL EMOTIONAL OUTBURSTS RELATED TO CHRONIC ILLNESS, OFFERED A LISTENING EAR AND EMPATHY.
--- NOTE | 2021-10-06 06:48 | NUR ---
PT A & OX4. V/S WNL. ADA DIET. ACCUCHECKS AC/HS. HS BS 425. 10 UNITS OF HUMALOG GIVEN PER DOCTOR'S ORDER. OXY SCHEDULED Q6HRS. 2-ASSIST. INCONTINENT OF URINE/BOWEL. 2 LARGE BM'S THIS SHIFT. POWERGLIDE TO L) UPPER ARM WITH TPN INFUSING AT 95 ML/HR. DRESSING TO COCCYX CHANGED. WILL CONTINUE TO MONITOR.
--- NOTE | 2021-10-06 18:25 | NUR ---
SHIFT SUMMARY PT A&OX4. VSS. NO NEW CHANGES. PT CAME TO VISIT THIS AFTERNOON. PT LEFT FLOOR IN A W/C WITH HER TO GO OUTSIDE AT ABOUT 1755. SHE STATES HER INTENT IS TO SPEND AN HOUR ALONE WITH HER .
--- NOTE | 2021-10-07 04:02 | NUR ---
PT A & OX4. V/S STABLE. REGULAR DIET. ACCUCHECKS AC &HS. NO SLIDING SCALE INSULIN INDICATED AT HS. 1-2 ASSIST WITH CANE. 3 LARGE BM'S. BM'S GETTING MORE FORMED. INCONTINENT OF URINE/BOWEL. PT HAD A SHOWER. POWERGLIDE TO L)UPPER ARM WITH TPN INFUSING AT 95 ML/HR ORDERED. PRN TYLENOL GIVEN FOR PAIN & PRN ATARAX GIVEN FOR ANXIETY PER EMAR. WILL CONTINUE TO MONITOR.
[2021-10-07 05:19] LABS: Triglycerides 68 mg/dL (30-160)
--- NOTE | 2021-10-07 13:55 | NUR ---
LEAVING THE FLOOR PT'S HERE. PT IS REQUESTING TO BE UNHOOKED FROM TPN INFUSION FOR AN OUTSIDE WALK IN A W/C WITH HER . INFORMED HER SHE COULD NOT LEAVE THE [facility] OR BE GONE LONGER THAN AN HOUR. SHE LEFT AT 1345.
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
--- NOTE | 2021-10-07 17:30 | NUR ---
Visit made today, pt states she doesn't know if any plans are being made for her. According to her chart, it appears Care Management may be sending her home, but they have not discussed this with her or yet as of today, 10/07. Pt still wishes to leave the area, but she is still working on her shelter care insurance.
--- NOTE | 2021-10-07 18:23 | NUR ---
SHIFT SUMMARY PT A&OX4. VSS. PT CONTINUES TO BE FULLY INCONTINENT OF LARGE LOOSE STOOLS & URINE AFTER EVERY MEAL. SHE CONTINUES TO KEEP LARGE AMOUNTS OF FOOD PROTECTIVELY STASHED IN HER ROOM, PLAN IS FOR HER TO POSSIBLY GO HOME WITH HOME HEALTH ONCE ARRANGEMENTS CAN BE MADE.
--- NOTE | 2021-10-08 03:51 | NUR ---
PT A & OX4. REGULAR DIET. POWERGLIDE L) UPPER ARM; TPN INFUSING AT 95 ML/HR. ACCUCHECKS AC & HS. HS BS: 405. NEW ORDER: 30 UNITS OF LANTUS + 10 UNITS OF HUMALOG GIVEN ORDERED. INCONTINENT OF URINE/BOWEL. 2-ASSIST. DRESSING TO COCCYX AND R) KNEE: C/D/I. PRN ATARAX GIVEN FOR ANXIETY AND PRN TYLENOL GIVEN FOR PAIN. WILL CONTINUE TO MONITOR.
--- NOTE | 2021-10-08 07:31 | NUR ---
Treatment contract/ Behavior contract reviewed with patient. This nurse read over plan with patient. Patient refuse to sign. Copy of plan given to patient.
--- NOTE | 2021-10-08 10:04 | NUR ---
MAD Consult order received. Met with Natalie Leo, Nursing Marine Pipe Welder and Anand Brunner to discuss situation. Patient had been given a Behavioral Contract by and had refused to sign. However, I met with PERRY Sampson and SHOSHANA Wills, and both told me that patient's behavior had been appropriate since they had come on shift. The patient is quite ill and requiring TPN for survival at present. Nursing staff instructed to document any behavioral issues factually and to contact Risk Management at [phone] if they would like me to come and talk with the patient.
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
--- NOTE | 2021-10-08 18:12 | NUR ---
DISCHARGE SUMMARY Handoff report given at bedside, pt participated in report & voiced her needs for the day. After noc shift left the room, pt reported "she wanted her CBG checked now, because staff is always late with insulin & then her food gets too cold to eat". Management met with pt this am to discuss behavior contract. Pt had coupious amount of loose stool after breakfast, pt OOB ambulated to toilet & then took a shower. Pt stated "I can't control my bowels, but I am independent and can do everything on my own". After her shower, pt yelled at staff for standing their and watching and not helping her. RN replied that pt stated they wanted to be independent, and offered assitance and pt declined. RN helped pt dry off & placed new patch on coccyx. Pt had 2nd coupious amt of loose stool after lunch. Spiritual care at bedside to provide comfort to pt. Pt requested PRN for anxiety & pain today. Pt observed to be sleeping comfortably this afternoon. New PPN administred at 1730, midline patent, flushed and infusing. Wound care and new dressings applied. requesting records from [facility], no records recieved today. No behaviors towards staff today, pt became irritable at times with medication orders, or wound care. RN provided education, pt verbalized understanding. Soft SBP today, MD notifed, rechecked this evening 121/82 BP, no new orders from MD. CBGs high, SSI given.
--- NOTE | 2021-10-08 19:00 | NUR ---
Pt requested new dinner tray, stated she doesn't like mushrooms and the meal had mushroom/gravy. Pt requested potatoes w/gravy & carrots, meal ordered and delivered at 1830. When staff delivered tray pt upset that there was no steak, and she wanted the 2nd alternative meal. Pt stated that she would report to dietary, why she did not receive protein for dinner tonight.
--- NOTE | 2021-10-09 05:36 | NUR ---
SHIFT SUMMARY PT AWAKE MUCH OF THE NIGHT. ONLY SLEEPING FOR SHORT PERIODS INFREQUENTLY. PT CALLS FREQUENTLY. EASILY UPSET IF STAFF IS NOT ABLE TO GET TO HER RIGHT AWAY. REQUESTS PAIN AND ANXIETY MEDICATION FREQUENTLY. EATS CONSTANTLY. STORES FOOD FROM HER TRAYS IN HER ROOM AND EATS THROUGHOUT THE NIGHT. CBG 482 THIS EVENING AT HS CHECK. PT HAD NO LONG ACTING INSULIN ORDERED. NEW ORDERS FOR 35 UNITS GLARGINE. PT HAS FREQUENT LOOSE STOOLS WITH UNDIGESTED FOOD. PPN TRANSFUSING. NO ACUTE CHANGES THIS EVENING. VITAL SIGNS STABLE.
--- NOTE | 2021-10-09 17:56 | NUR ---
DAYSHIFT SUMMARY No acute changes to pt status this shift. Pt in a good mood this morning, told nursing staff she wants therapy, so she can get stronger, stated "I have been asking for therapy for 4 days now". This morning OT attempted session, pt refused, and said to come back later. OT reported to RN, and stated she would try to come back to offer therapy. This evening PT attempted therapy with pt, pt again refused therapy. RN encouraged pt to participate in therapy, pt stated "no one has offered therapy to help me walk". This morning pt requesting sugar packets & popsicle, IT BUSINESS SYSTEMS ANALYST stated she would check with RN, because pt is a diabetic. Pt began yelling at the IT BUSINESS SYSTEMS ANALYST, RN came into the room to redirect & calm down pt. Provided education on diabetic diet, and controlling blood sugars, to promote wound healing. Pt stated that she is not restricted to a diabetic diet and wanted sugar packets & a popsicle. Blood sugar this AM 102, noon CBG 309, 12 units of insulin given per SSI, dinner CBG 159, 3 units of insulin administred. MD ordered banana flakes TID, pt had loose stools, but contained in brief, compared to previous shift, pt required a full bed change several times during day/noc shift. Pallilative care met with pt, and stated that she can have caregivers at home, stated anticipating discharge home tomorrow. MD still waiting for records from [facility] & would also like records from PCP. Vitals stable this shift, soft BP this evening. Pt refused to get OOB this shift, and wanted staff to change her brief in bed. PPN adminsitred at 1700, new tubing. Powerglide dressing changed today, CDI. Mepilex on coccyx applied twice this shift, CDI. Todays wt is 93 lbs, last wt recorded on 10/01/21 was 88.4 lbs. Pt excited with her wt gain, reported feeling hopeful today.
--- NOTE | 2021-10-10 04:51 | NUR ---
PT IS ALERT, EMOTIONAL AT TIMES, MEDICATED FOR PAIN, ANXIETY, AND DIARRHEA THIS SHIFT. PT IS CACHECTIC, WITH FREQUENT DIARRHEA, EATING OFTEN THROUGHOUT THE NIGHT. PRESSURE SORE TO COCCYX, MEPILEX REPLACED DUE TO STOOL. MULTIPLE DRY SCABBED ABRASIONS TO LOWER EXTREMITIES. POSSIBLE D/C HOME TODAY.
[2021-10-10 06:13] LABS: Albumin, Blood 1.8 g/dL (3.4-5.0); Anion Gap 2 mmol/L (6-16); Blood Urea Nitrogen 10 mg/dL (8-24); Bun/Creatinine Ratio 30.7 (12.0-20.0); CO2, Blood 34 mmol/L (21-32); Calcium, Blood 8.4 mg/dL (8.5-10.1); Chloride, Blood 104 mmol/L (98-108); Creatinine, Blood 0.33 mg/dL (0.40-1.00); Glomerular Filtration Rate 125 (60-); Glucose, Blood 141 mg/dL (70-99); Phosphorus, Blood 3.6 mg/dL (2.5-4.9); Potassium, Blood 3.9 mmol/L (3.5-5.5); Sodium, Blood 140 mmol/L (136-145)
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
[2021-10-10] MEDS ORDERED: BANATROL PLUS1 EAC1 PO (12:35)
[2021-10-10] MEDS ORDERED: ZENPEP DR 20,01 EACH PO ×2 (12:36→12:37)
[2021-10-10] MEDS ORDERED: LOPE2C PO (12:38)
[2021-10-10] MEDS ORDERED: ANTIFUNGAL POWD71 GM TOP (12:39)
[2021-10-10] MEDS ORDERED: VISBIOME 112.51 EACH PO (12:40)
[2021-10-10] MEDS ORDERED: ROXYBOND5 MG PO (12:40)
[2021-10-10] MEDS ORDERED: ZINC220 PO (12:40)
[2021-10-10] MEDS ORDERED: CEFD300 PO (12:40)
--- NOTE | 2021-10-10 15:27 | NUR ---
RECOMMEND OUTPATIENT WOUND CARE ALONG WITH NURSING SERVICES. OUTPATIENT WOUND REFERRAL PLACED.
[2021-10-10] MEDS ORDERED: TUMS500 MG PO (16:36)
[2021-10-10] MEDS ORDERED: SERT50 PO (16:37)
--- NOTE | 2021-10-10 17:21 | NUR ---
pt choosing hospice at this point update from caregiver services home. will assist with plan
--- NOTE | 2021-10-10 18:19 | NUR ---
Singh working with patient today to get referrals in place for discharge, pt is discharging home with homehealth/wound care follow-up. Pts mood is labile, she is happy, then tearful and yelling at staff. Pt stated her won't pick her up and she needs transport. Pt stated she can't stay in her home with her and needed gas vouchers so [place]. Singh set up transportation to take her to [facility] for Rx & then home. Pts CBG at lunch was 201, 6 units of insulin given, pts lunch tray in front of patient. Pt did not eat food until 2pm, she requested CBG check & was 49. Juice given to pt, and rechecked suagr 167. aware. Provided discharge teaching, pt verbalized understanding. Transport arrived at 545, pt left unit at 615.
== END 2021-10-10 18:10 | disposition home health service (06) | DRG 871 ==
LOC: ER 22:51 → PCU 09-25 05:06 → MEDS 10-02 11:50
PROVIDERS: Emergency Medicine; Internal Medicine; ADMIT Family Medicine
DX: A41.51 Sepsis due to Escherichia coli [E. coli] (principal); L89.153 Pressure ulcer of sacral region, stage 3; J18.9 Pneumonia, unspecified organism; E43 Unspecified severe protein-calorie malnutrition; A40.3 Sepsis due to Streptococcus pneumoniae; B37.0 Candidal stomatitis; K86.1 Other chronic pancreatitis; R64 Cachexia; K90.9 Intestinal malabsorption, unspecified; E87.2 Acidosis; Z68.1 Body mass index [BMI] 19.9 or less, adult; Z20.822 Contact with and (suspected) exposure to COVID-19; Z51.5 Encounter for palliative care; K52.9 Noninfective gastroenteritis and colitis, unspecified; G89.4 Chronic pain syndrome; E11.9 Type 2 diabetes mellitus without complications; F41.9 Anxiety disorder, unspecified; L89.42 Pressure ulcer of contiguous site of back, buttock and hip, stage 2; F17.210 Nicotine dependence, cigarettes, uncomplicated; E87.6 Hypokalemia; E83.42 Hypomagnesemia; F15.10 Other stimulant abuse, uncomplicated; E83.39 Other disorders of phosphorus metabolism; D64.9 Anemia, unspecified; Z90.49 Acquired absence of other specified parts of digestive tract; Z79.4 Long term (current) use of insulin; Z79.899 Other long term (current) drug therapy
CPT/HCPCS: 0241U; 36415; 51703; 71045; 71260; 80048; 80053; 80069; 81001; 82607; 82728; 82746; 82947; 83540; 83550; 83605; 83690; 83735; 83880; 84100; 84132; 84443; 84478; 84484; 85025; 85027; 87040; 87077; 87086; 87186; 93005; 93010; 94640; 94664; 94760; 94762; 96365; 96366; 96367; 96368; 96375; 97110; 97116; 97162; 97166; 97530; 97535; 99285-25; A9270; C1751; C9113; G0480; J0456; J0610; J0696; J1650; J1815; J3411; J3475; J3480; J7030; J7040; J7060; J7120; J7131; Q9967

== ENCOUNTER 2021-10-16 19:31 | Inpatient (IN) | payer OTHER ==
[~2021-10-16] VITALS: Ht 170.2 cm; Wt 42.0 kg
[~2021-10-16 19:31] MED LIST changes: +ANTIFUNGAL POWD71 GM TOP; +BANATROL PLUS1 EAC1 PO; +CEFD300 PO; +ERGO50000 PO; +LOPE2C PO; +MULVITA PO; +OMEP20ER PO; +POTA10T PO; +PRENATAL TABLE1 EAC2 PO; +ROXYBOND5 MG PO; +SERT50 PO; +TIZA4 PO; +TUMS500 MG PO; +VISBIOME 112.51 EACH PO; +ZENPEP DR 20,01 EACH PO; +ZINC220 PO
[2021-10-16 21:13] LABS: BASOPHILS ABSOLUTE AUTO 0.03 K/mm3 (0.00-0.23); BASOPHILS PERCENT AUTO 0 % (0-2); EOSINOPHILS PERCENT AUTO 0 % (0-6); Hematocrit 35.2 % (33.0-51.0); Hemoglobin 11.1 g/dL (11.5-16.0); IMMATURE GRAN ABSOLUTE AUTO 0.13 K/mm3 (0.00-0.10); IMMATURE GRAN PERCENT AUTO 1 % (0-1); LYMPHOCYTES ABSOLUTE AUTO 1.37 K/mm3 (0.84-5.20); LYMPHOCYTES PERCENT AUTO 10 % (21-46); MONOCYTES ABSOLUTE AUTO 0.68 K/mm3 (0.16-1.47); MONOCYTES PERCENT AUTO 5 % (4-13); Mean Corpuscular HGB 28.8 pg (26.0-34.0); Mean Corpuscular HGB Conc 31.5 g/dL (31.5-36.5); Mean Corpuscular Volume 91 fL (80-100); Mean Platelet Volume 9.5 fL (9.1-12.4); NEUTROPHILS ABSOLUTE AUTO 12.04 K/mm3 (1.96-9.15); NEUTROPHILS PERCENT AUTO 85 % (41-73); Platelet Count 698 K/mm3 (150-400); RDW Coefficient Variation 13.2 % (11.7-14.2); RDW Standard Deviation 44.3 fL (35.1-46.3); Red Blood Cell Count 3.86 M/mm3 (3.80-5.20); White Blood Cell Count 14.25 K/mm3 (4.00-11.30)
[2021-10-16 21:34] LABS: Beta-hydroxybutyrate 1.3 mg/dL (0.2-2.8); Magnesium, Blood 1.9 mg/dL (1.6-2.4)
[2021-10-16 21:35] LABS: Albumin, Blood 2.5 g/dL (3.4-5.0); Albumin/Globulin Ratio 0.4 (0.8-1.8); Bilirubin, Total 0.4 mg/dL (0.1-1.0); Bun/Creatinine Ratio 25.3 (12.0-20.0); Calcium, Blood 8.7 mg/dL (8.5-10.1); Creatinine, Blood 0.4 mg/dL (0.40-1.00); Globulin, Blood 5.9 g/dL (2.2-4.0); Potassium, Blood 3.6 mmol/L (3.5-5.5); Total Protein, Blood 8.4 g/dL (6.4-8.2)
[2021-10-17 00:55] LABS: Glucose, Blood 607 mg/dL (70-99)
[2021-10-17 05:34] LABS: BASOPHILS ABSOLUTE AUTO 0.04 K/mm3 (0.00-0.23); BASOPHILS PERCENT AUTO 0 % (0-2); EOSINOPHILS ABSOLUTE AUTO 0.02 K/mm3 (0.00-0.68); EOSINOPHILS PERCENT AUTO 0 % (0-6); Hematocrit 33.3 % (33.0-51.0); Hemoglobin 10.5 g/dL (11.5-16.0); IMMATURE GRAN ABSOLUTE AUTO 0.12 K/mm3 (0.00-0.10); IMMATURE GRAN PERCENT AUTO 1 % (0-1); LYMPHOCYTES ABSOLUTE AUTO 1.79 K/mm3 (0.84-5.20); LYMPHOCYTES PERCENT AUTO 14 % (21-46); MONOCYTES ABSOLUTE AUTO 0.62 K/mm3 (0.16-1.47); MONOCYTES PERCENT AUTO 5 % (4-13); Mean Corpuscular HGB 28.5 pg (26.0-34.0); Mean Corpuscular HGB Conc 31.5 g/dL (31.5-36.5); Mean Corpuscular Volume 90 fL (80-100); Mean Platelet Volume 9.3 fL (9.1-12.4); NEUTROPHILS ABSOLUTE AUTO 10.51 K/mm3 (1.96-9.15); NEUTROPHILS PERCENT AUTO 80 % (41-73); Platelet Count 619 K/mm3 (150-400); RDW Coefficient Variation 13.1 % (11.7-14.2); RDW Standard Deviation 43.3 fL (35.1-46.3); Red Blood Cell Count 3.69 M/mm3 (3.80-5.20)
[2021-10-17 06:02] LABS: Albumin, Blood 2.2 g/dL (3.4-5.0); Albumin/Globulin Ratio 0.4 (0.8-1.8); Bilirubin, Total 0.3 mg/dL (0.1-1.0); Bun/Creatinine Ratio 31.2 (12.0-20.0); Calcium, Blood 8.4 mg/dL (8.5-10.1); Creatinine, Blood 0.35 mg/dL (0.40-1.00); Globulin, Blood 5.4 g/dL (2.2-4.0); Total Protein, Blood 7.6 g/dL (6.4-8.2)
[2021-10-17 14:25] LABS: Source, Urine Foley catheter
[2021-10-17 14:58] LABS: Appearance, Urine Hazy (Clear); Bilirubin, Urine Neg (Neg); Blood, Urine Neg (Neg); Glucose Qualitative, Urine 4+ (Neg); Ketones, Urine Neg (Neg); Leukocyte Esterase, Urine Neg (Neg); Nitrite, Urine Neg (Neg); Protein, Urine Neg (Neg); Urobilinogen, Urine NORM (Normal)
[2021-10-17 15:07] LABS: Color, Urine Pale Yellow (P-Yellow)
[2021-10-17 15:09] LABS: Yeast/Fungi Urine Many /hpf
[2021-10-17 15:10] LABS: Other Crystals Few /hpf
[2021-10-17 15:11] LABS: Bacteria Few /hpf; Squamous Epithelial Cells Rare /hpf (Few)
[2021-10-17 15:17] LABS: U Amphetamine Screen DETECTED; U Barbituate Screen Not Detected; U Benzodiazapine Screen Not Detected; U Buprenorphine Screen Not Detected; U Cannabinoids Screen Not Detected; U Cocaine Screen Not Detected; U Methadone Screen Not Detected; U Methamphetamine Screen DETECTED; U Opiates Screen Not Detected; U Oxycodone Screen DETECTED; U Phencyclidine Screen Not Detected; U Propoxyphene Screen Not Detected
[2021-10-17 18:07] LABS: SARS-Cov-2 (COVID-19) PCR, MMC POSITIVE (NEGATIVE)
--- NOTE | 2021-10-17 18:51 | NUR ---
PATIENT ADMIT TO PCU THIS AM. ALERT AND ORIENTED X4. PERRLA. COMPLAINS OF NEUROPATHY IN BILATERAL LOWER EXTREMITIES. ABLE TO STAND AND TRANSFER TO BED. USES CANE AT BASELINE. OVERALL WEAK AND FRAGILE. EMOTIONAL AND UPSET ABOUT NOT EATING ENOUGH. DIETARY CONSULT IN PLACE, NEW DIET ORDER. BLOOD SUGAR CHECKS Q2, TRENDING IN RIGHT DIRECTION. TELE SHOWING SINUS RHYTHM WITH HR 80-90'S. DENIES CHEST PAIN/PRESSURE. BP STABLE. NO SIGNS OF EDEMA. ON ROOM AIR, DENIES SOB/COUGH. ISOLATION IN PLACE. COMPLAINS OF ABDOMIAL PAIN DUE TO PANCREATITIS. SEE EMAR FOR PAIN MEDICATION ADMINISTRATION. SKIN OVERALL FRAGILE. MULTIPLE PRESSURE ULCERS PRESENT ON ADMIT. SACRAL/COCCYX PRESSURE ULCER - CLEANED AND DRESSED. BILATERAL KNEE/OUTER LEGS. BOTTOM OF RIGHT FOOT - MINIMAL SEROSANG DRAINAGE. DR. RAY IN TO ASSESS RIGHT FOOT. PLAN FOR OR IN AM. NPO AT MIDNIGHT. PRE COVID TEST COMPLETED. SEE CHART FOR PICTURES OF WOUNDS. WOUND CONSULT IN PLACE. ORTIZ CATH IN PLACE DRAINING CLEAR/YELLOW URINE TO GRAVITY. RECTAL TUBE IN PLACE DRAINING LIQUID/MIXED SOFT STOOLS TO GRAVITY. SOME LEAKAGE AROUND RECTAL TUBE, CHANGING Q1 OR NEEDED, TO KEEP OFF SKIN. CALL LIGHT IN REACH. MED REC COMPLETED. WILL CONTINUE TO MONITOR AND REPORT OFF.
--- NOTE | 2021-10-18 | NUR ---
POC BLOOD GLUCOSE 312. NOTE: PT HAS BEEN EATING/SNACKING ALMOST NON-STOP FOR THE PREVIOUS 2 HOURS.
--- NOTE | 2021-10-18 00:30 | NUR ---
CALL TO HOSPITALIST. UPDATED ON POC BLOOD GLUCOSE NUMBERS. INITIAL ORDER UPON ADMISSION WAS FOR Q2 HOUR POC GLUCOSE CHECKS. INSULIN IS ORDERED AC/HS. PT IS EATING FREQUENTLY THROUGHOUT THE DAY. INQUIRED ABOUT WHETHER TO CONTINUE Q2 HOUR FREQUENCY. NEW ORDER RECEIVED FOR AC/HS POC GLUCOSE CHECKS.
[2021-10-18 04:16] LABS: BASOPHILS ABSOLUTE AUTO 0.04 K/mm3 (0.00-0.23); BASOPHILS PERCENT AUTO 0 % (0-2); EOSINOPHILS ABSOLUTE AUTO 0.04 K/mm3 (0.00-0.68); EOSINOPHILS PERCENT AUTO 0 % (0-6); Hematocrit 34.5 % (33.0-51.0); Hemoglobin 10.9 g/dL (11.5-16.0); IMMATURE GRAN ABSOLUTE AUTO 0.11 K/mm3 (0.00-0.10); IMMATURE GRAN PERCENT AUTO 1 % (0-1); LYMPHOCYTES ABSOLUTE AUTO 1.93 K/mm3 (0.84-5.20); LYMPHOCYTES PERCENT AUTO 18 % (21-46); MONOCYTES ABSOLUTE AUTO 0.55 K/mm3 (0.16-1.47); MONOCYTES PERCENT AUTO 5 % (4-13); Mean Corpuscular HGB 28.5 pg (26.0-34.0); Mean Corpuscular HGB Conc 31.6 g/dL (31.5-36.5); Mean Corpuscular Volume 90 fL (80-100); Mean Platelet Volume 9.3 fL (9.1-12.4); NEUTROPHILS ABSOLUTE AUTO 8.09 K/mm3 (1.96-9.15); NEUTROPHILS PERCENT AUTO 75 % (41-73); Platelet Count 642 K/mm3 (150-400); RDW Coefficient Variation 13.1 % (11.7-14.2); RDW Standard Deviation 42.9 fL (35.1-46.3); Red Blood Cell Count 3.83 M/mm3 (3.80-5.20); White Blood Cell Count 10.76 K/mm3 (4.00-11.30)
[2021-10-18 04:47] LABS: Albumin/Globulin Ratio 0.4 (0.8-1.8); Bilirubin, Total 0.2 mg/dL (0.1-1.0); Calcium, Blood 8.3 mg/dL (8.5-10.1); Creatinine, Blood 0.42 mg/dL (0.40-1.00); Globulin, Blood 5.2 g/dL (2.2-4.0); Potassium, Blood 4.1 mmol/L (3.5-5.5); Total Protein, Blood 7.2 g/dL (6.4-8.2)
--- NOTE | 2021-10-18 08:19 | NUR ---
10/18/21 0819 Leandro Barone PROCEDURE PERFORMED ON [facility] PER MD AND PT COMFORT. PT HAS SORE ON BOTTOM, LAZY LATERAL POSITION FOR COMFORT. NO SCD'S DUE TO SORES ON LEGS KENJI. ORTIZ AND STOOL COLLECTION SYSTEM IN PLACE.
--- NOTE | 2021-10-18 10:43 | NUR ---
AM CARE: PT ARRIVED BACK IN THE ROOM AROUND 10AM FROM OR POST I&D OF RIGHT PLANTAR FOOT, PACKED WITH IODOFORM PER REPORT, NON WEIGHT BEARING STATUS ON R LEG, PT IS AWARE. PT REMAINED ALERT AND ORIENTED AT BASELINE, VITALS HRR 90'S, BP SOT AT 80-90'S, SATS ABOVE 95%, AFEBRILE. NS AT 125MLS STARTED FOR FLUID MAINTENANCE PER ORDER. DIET RESUMED ON REGULAR PROVIDER AWARE PT REFUSED ADA DIET, PT MADE AWARE OF MEAL/SNACK TIMES TO LET THIS NURSE KNOW SO SHE CAN GET HER PRN PACREATIC ENZYME MEDS. PT WITH BIG APPETITE, RECTAL TUBE IN PLACE AND INTACT DRAINING BROWN LOOSE STOOLS, ORTIZ DRAINING CLEAR YELLOW URINE. PT IN BED FINISHING UP BREAKFAST RIGHT NOW, NO COMPLAINS AT THIS TIME, SCD ON LEFT LEG STARTED PER ORDER. ABLE TO MAKE NEEDS KNOWN, WILL MONITOR UNTIL END OF SHIFT
[2021-10-18 13:26] LABS: Vancomycin, Trough 10.3 ug/mL (5.0-10.0)
--- NOTE | 2021-10-18 14:36 | NUR ---
COMPLAINT AT AROUND 1300 SOLEDAD RN REQUESTED ASSISTANCE IN ROOM DUE COMMUNICATION ISSUE WITH PATIENT. UPON ENTERING ROOM RN WAS CHARTING MEDICATIONS AND PATIENT WAS SITTING UP IN BED WITH MEAL TRAY. PATIENT BEGAN STATING SHE DIDN'T HAVE A PROBLEM WITH ANYTHING, PATIENT STATED SHE WAS NOT SPEAKING OVER STAFF AND WAS NOT UPSET. AFTER PATIENT STATED THIS SHE STARTED RAISING HER VOICE ABOUT HER MEAL TRAY STATING SHE DIDN'T GET TO CHOOSE HER FOOD, MEDICAL TECHNOLOGIST ATTEMPTED TO SPEAK TO PATIENT AND PATIENT BEGAN YELLING OVER MEDICAL TECHNOLOGIST. MEDICAL TECHNOLOGIST ASKED PATIENT TO LISTEN SO WE COULD FIND RESOLUTION, OFFERED TO CONTACT DIETARY AND RETREIVE A MENU, PATIENT YELLED NO THAT WOULDN'T WORK THEN PATIENT BECAME AGITATED AND RAISING VOICE AGAIN REGARDING THE ITEMS ON HER TRAY BEING DIFFICULT TO CHEW DUE TO LACK OF DENTURES. MEDICAL TECHNOLOGIST OFFERED TO CHANGE THE TEXTURE OF THE FOOD, WHILE MEDICAL TECHNOLOGIST WAS TRYING TO SPEAK PATIENT CONTINUED TO INTERRUPT AND STATED NO, THAT WE WERE NOT TO CHANGE ANYTHING WITH HER DIET. CONTINUED TO TRY TO OFFER RESOLUTION TO HER CONCERNS, PATIENT CONTINUED TO DECLINE ANY OFFERS OF CHANGES AND CONTINUED TO RAISE VOICE AND SPEAK OVER STAFF. MEDICAL TECHNOLOGIST EXPLAINED WE REQUEST THAT THE PATIENT AND STAFF WILL TREAT EACH OTHER RESPECTFULLY AND CONTINUE TO WORK TOWARDS RESOLUTION BUT IT IS IMPORTANT TO TAKE THE TIME TO LISTEN TO THE OPTIONS PROVIDED SO WE CAN BETTER MEET HER NEEDS. PATIENT TOLD STAFF TO LEAVE HER ROOM AND LEAVE HER MEAL TRAY ALONE OR SHE WOULD LEAVE. MEDICAL TECHNOLOGIST NOTIFIED DIETARY AND EXPLAINED SITUATION. DIETARY IN ROOM AND PROVIDED RESOLUTION TO PATIENT'S CONCERNS REGARDING MEAL OPTIONS AND CHOICES.
--- NOTE | 2021-10-18 18:10 | NUR ---
PT SUMMARY: PT REMAINED STABLE POST PROCEDURE, BP SYSTOLIC REMAINED SOFT 70-90'S MIDODRINE ADDED ON MED REGIMEN, MAP ABOVE 60'S. DRESSING ON RIGHT FOOT INTACT, CIRC CHECK WNL. PAIN MEDICINE WAS GIVEN 3X FOR THE SHIFT, PT VERBALIZED EFFECTIVENESS. PT HAD MULTIPLE BM EPISODES, SINCE PT HAS HUGE APPETITE, RECTAL TUBE WAS REMOVED SINCE THE STOOL STARTED FORMING AND WAS CLOGGING THE TUBE, ATTENDS INPLACE AT THIS TIME. ORTIZ DRAINING PATENT VIA GRAVITY. BED BATH PROVIDED FOR THE SHIFT, COCCYX DRESSING CHANGED WELL. PT HAS SOME BEHAVIORAL ISSUES FOR THE SHIFT THAT WAS ADDRESSED AND DISCUSSED IN THE ROOM WITH THE CHARGE NURSE. PT WAS UPSET ABOUT NOT GETTING ANY MENU PT WAS INFORMED ABOUT CONTAMINATION ISSUES DUE TO ISOLATION, PT THEN STARTED RANTING, RAISING VOICE WITH AN ATTITUDE SAYING "THIS IS BULLSHIT!" THIS NURSE INFORMED THE PT THAT THE BEHAVIOR IS NOT TOLERATED IN THE HOSPITAL PT CONTINUES TO RANT AND YELL "I DONT CARE! CALL YOUR CHARGE NURSE WHATEVER!" WHEN CHARGE NURSE WAS IN THE ROOM TALKING TO THE PT, PT WAS CALM AND COOPERATIVE AT FIRST BY THE END OF THE CONVERSATION PT YELLED AND RANT AGAIN. THIS RN WARNED THE PT TO GET SECURITY INVOLVED IF PT WONT CALM, LISTEN AND COOPERATE. PT WAS GIVEN SOMETIME IN THE ROOM, TOOK A NAP AND UPON WAKING UP PT DOES NOT SEEM TO REMEMBER WHAT HAPPENED AND WAS NICE AND CALM TIL THE REST OF THE SHIFT
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
[2021-10-19 05:20] LABS: BASOPHILS ABSOLUTE AUTO 0.04 K/mm3 (0.00-0.23); BASOPHILS PERCENT AUTO 0 % (0-2); EOSINOPHILS ABSOLUTE AUTO 0.04 K/mm3 (0.00-0.68); EOSINOPHILS PERCENT AUTO 0 % (0-6); Hematocrit 27.6 % (33.0-51.0); Hemoglobin 8.9 g/dL (11.5-16.0); IMMATURE GRAN ABSOLUTE AUTO 0.13 K/mm3 (0.00-0.10); IMMATURE GRAN PERCENT AUTO 1 % (0-1); LYMPHOCYTES ABSOLUTE AUTO 1.63 K/mm3 (0.84-5.20); LYMPHOCYTES PERCENT AUTO 12 % (21-46); MONOCYTES ABSOLUTE AUTO 0.86 K/mm3 (0.16-1.47); MONOCYTES PERCENT AUTO 6 % (4-13); Mean Corpuscular HGB 28.6 pg (26.0-34.0); Mean Corpuscular HGB Conc 32.2 g/dL (31.5-36.5); Mean Corpuscular Volume 89 fL (80-100); Mean Platelet Volume 9.4 fL (9.1-12.4); NEUTROPHILS ABSOLUTE AUTO 10.92 K/mm3 (1.96-9.15); NEUTROPHILS PERCENT AUTO 80 % (41-73); Platelet Count 534 K/mm3 (150-400); RDW Coefficient Variation 12.8 % (11.7-14.2); RDW Standard Deviation 41.3 fL (35.1-46.3); Red Blood Cell Count 3.11 M/mm3 (3.80-5.20); White Blood Cell Count 13.62 K/mm3 (4.00-11.30)
[2021-10-19 05:56] LABS: Bun/Creatinine Ratio 28.5 (12.0-20.0); Calcium, Blood 8.2 mg/dL (8.5-10.1); Creatinine, Blood 0.32 mg/dL (0.40-1.00); Potassium, Blood 3.6 mmol/L (3.5-5.5)
--- NOTE | 2021-10-19 17:56 | NUR ---
PT SUMMARY: PT WAS CALM AND COOPERATIVE TODAY, STILL HAS SOME IRRITABLE EPISODES WHEN GETTING FRUSTRATED, PT WAS ENCOURAGED TO TAKE SOME DEEP BREATHS AND CALM DOWN AND TRY TO LISTEN HEALTHCARE MEMBERS ARE RELYING INFORMATION, NURSING STEAM BOILER FIREMAN ALSO CAME TO CHECK ON PT PT HAD A MAD CONSULT WELL ON HER LAST STAY, PT WAS REMINDED AGAIN THAT BEHAVIOR IS NOT TOLERABLE IN THE FACILITY, PT WAS APOLOGETIC TRYING TO EXPLAIN HER SIDE AND WHAT SHE'S BEEN GOING THROUGH. PT AGREED TO LISTEN AND RESPECT PEOPLE PROVIDING CARE. DR RAY CAME AND SAW PT REDRESSED WOUND ON RIGHT FOOT, ALSO DID A MINOR I&D ON THE NEW ABSCESS NOTED ON TOP OF THE RIGHT FOOT, PT FOR POSSIBLE SURGERY TOMORROW AM, ALSO RECOMMENDED TO KEEP PT ON IV ABO, STILL TRYING TO GET IV ACCESS FOR PT AT THIS TIME. TO REFER TO WOUND CLINIC IN AM. PT'S SCAB ON LEGS BROKE OPEN PT HAD BATH AT THE BEDSIDE EARLIER WHILE SITTING IN THE CHAIR NOTICED OPEN SORES ON LEGS THAT LOOKS LIKE ITS BEEN PICKED AT, PT DENIES PICKING ON SCABS, WOUNDS WAS CLEANED AND COVERED WITH MEPILEX, PT WAS ALSO EDUCATED ABOUT INFECTION PREVENTION ON WOUNDS. BLOOD SUGAR WAS CONTROLLED FOR THE SHIFT, PT STILL FINISHES MEAL TRAYS WITH SNACK IN BETWEEN, STILL HAD MULTIPLE EPISODES OF INCONTINENT BOWELS. ORTIZ DRAINED ABOUT 1000MLS FOR THE SHIFT. NO OTHER ISSUES REPORTED, PT STILL CALLS OFTEN AND SOMEWHAT NEEDY OTHER THAN THAT COOPERATIVE. WILL CONTINUE TO MONITOR
[2021-10-20 04:28] LABS: BASOPHILS ABSOLUTE AUTO 0.06 K/mm3 (0.00-0.23); BASOPHILS PERCENT AUTO 1 % (0-2); EOSINOPHILS ABSOLUTE AUTO 0.05 K/mm3 (0.00-0.68); EOSINOPHILS PERCENT AUTO 1 % (0-6); Hematocrit 32.5 % (33.0-51.0); IMMATURE GRAN ABSOLUTE AUTO 0.23 K/mm3 (0.00-0.10); IMMATURE GRAN PERCENT AUTO 2 % (0-1); LYMPHOCYTES ABSOLUTE AUTO 2.28 K/mm3 (0.84-5.20); LYMPHOCYTES PERCENT AUTO 21 % (21-46); MONOCYTES ABSOLUTE AUTO 0.69 K/mm3 (0.16-1.47); MONOCYTES PERCENT AUTO 6 % (4-13); Mean Corpuscular HGB 27.9 pg (26.0-34.0); Mean Corpuscular HGB Conc 30.8 g/dL (31.5-36.5); Mean Corpuscular Volume 91 fL (80-100); Mean Platelet Volume 9.4 fL (9.1-12.4); NEUTROPHILS ABSOLUTE AUTO 7.42 K/mm3 (1.96-9.15); NEUTROPHILS PERCENT AUTO 69 % (41-73); Platelet Count 511 K/mm3 (150-400); RDW Coefficient Variation 12.8 % (11.7-14.2); Red Blood Cell Count 3.59 M/mm3 (3.80-5.20); White Blood Cell Count 10.73 K/mm3 (4.00-11.30)
[2021-10-20 05:02] LABS: Bun/Creatinine Ratio 37.4 (12.0-20.0); Calcium, Blood 8.3 mg/dL (8.5-10.1); Creatinine, Blood 0.29 mg/dL (0.40-1.00); Potassium, Blood 4.6 mmol/L (3.5-5.5)
--- NOTE | 2021-10-20 13:06 | NUR ---
Consult order recieved for maladaptive and disruptive behavior on 10-18-21. Positive improvements are reported in the recent nursing notes. If her cooperativeness declines or her conduct becomes problematic please communicate these developments to Anand Brunner, Support Services or Lynsey Terry, Director of Risk Management.
--- NOTE | 2021-10-20 18:07 | NUR ---
10/20/21 1807 Dae Vaughn NO BOVIE USED, NO BOVIE PAD APPLIED. PATIENT NOTED TO HAVE MULTIPLE SKIN WOUNDS COVERED WITH DRESSINGS SCATTERED OVER BODY.
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
--- NOTE | 2021-10-20 23:03 | NUR ---
CARE ASSUMPTION: RECEIVED REPORT FROM SOLEDAD LANE RN PATIENT WAS ENTERING ROOM FOLLOWING PROCEDURE. PATIENT TRANSFERRED SELF FROM [facility] TO PCU BED. PATIENT COMPLAINED OF BEING COLD AND WAS WRAPPED IN BLANKETS. PATIENT REQUESTED OATMEAL AND NAPPED FOR AN HOUR. PATIENT WAS GIVEN DINNER AND NOC MEDICATIONS PER EMAR. PATIENT RESTING IN BED WITH CALL LIGHT IN PLACE. PATIENT STATES SHE WILL "EAT AND SLEEP" ALL NIGHT SINCE SHE WAS NPO DURING THE DAY.
[2021-10-21 04:31] LABS: BASOPHILS ABSOLUTE AUTO 0.06 K/mm3 (0.00-0.23); BASOPHILS PERCENT AUTO 1 % (0-2); EOSINOPHILS ABSOLUTE AUTO 0.03 K/mm3 (0.00-0.68); EOSINOPHILS PERCENT AUTO 0 % (0-6); Hematocrit 32.3 % (33.0-51.0); IMMATURE GRAN ABSOLUTE AUTO 0.16 K/mm3 (0.00-0.10); IMMATURE GRAN PERCENT AUTO 2 % (0-1); LYMPHOCYTES PERCENT AUTO 21 % (21-46); MONOCYTES ABSOLUTE AUTO 0.61 K/mm3 (0.16-1.47); MONOCYTES PERCENT AUTO 6 % (4-13); Mean Corpuscular HGB 28.2 pg (26.0-34.0); Mean Corpuscular Volume 91 fL (80-100); Mean Platelet Volume 9.6 fL (9.1-12.4); NEUTROPHILS ABSOLUTE AUTO 7.56 K/mm3 (1.96-9.15); NEUTROPHILS PERCENT AUTO 71 % (41-73); Platelet Count 507 K/mm3 (150-400); RDW Standard Deviation 42.7 fL (35.1-46.3); Red Blood Cell Count 3.54 M/mm3 (3.80-5.20); White Blood Cell Count 10.62 K/mm3 (4.00-11.30)
[2021-10-21 04:52] LABS: Anion Gap 3 mmol/L (6-16); Blood Urea Nitrogen 9 mg/dL (8-24); Bun/Creatinine Ratio 28.9 (12.0-20.0); CO2, Blood 34 mmol/L (21-32); Chloride, Blood 97 mmol/L (98-108); Creatinine, Blood 0.31 mg/dL (0.40-1.00); Glomerular Filtration Rate 127 (60-); Glucose, Blood 376 mg/dL (70-99); Magnesium, Blood 1.6 mg/dL (1.6-2.4); Phosphorus, Blood 2.6 mg/dL (2.5-4.9); Potassium, Blood 4.6 mmol/L (3.5-5.5); Sodium, Blood 134 mmol/L (136-145); Triglycerides 49 mg/dL (30-160)
--- NOTE | 2021-10-21 06:13 | NUR ---
SHIFT SUMMARY: PATIENT VSS T/O SHIFT, DENIES SOB OR CHEST PAIN. R LEG PAINFUL FOLLOWING SURGERY. COCCYX WOUND COVERED WITH FOAM PADDING. PER AIDE PATIENT HAD "SEVERAL" LOOSE STOOLS THIS SHIFT - MEDICATED PER EMAR. PATIENT HAS SLEPT AND ATE T/O SHIFT. MEDICATED PER EMAR. BED LOW WITH CALL LIGHT IN REACH. WILL CONTINUE TO MONITOR AND REPORT TO ONCOMING RN.
--- NOTE | 2021-10-21 08:30 | NUR ---
AM ASSESSMENT: Pt resting in bed. States that she is having 8/10 pain in her R foot/leg and buttock. Wounds noted on r knee, coccyx and R foot. Pt has multiple healing scabs/sores. R foot with 4x4 and NADEEM wrap. Mepalex dressings in place in R knee and coccyx. Groin very red. Wound consultation in place. HR reg. Bt hyperactive, LS clear. Pulses palp. Rizo cath draining clear yellow urine. CBG verey elevated. Pt states that she was too hungry and couldn't wait for her blood surgar to be checked so she had been eating crackes and peanut butter prior to CBG. Will cover with insulin per orders. Other VSS. Will continue to monitor and treat. Call light in reach.
--- NOTE | 2021-10-21 11:19 | NUR ---
update: Pt had incontinent Stool. Cleand up pt, changed coxxyx dressing after wound was cleaned with skintegrety. Appears to be tunneling. Notified physician and surgical consult obtained. Report given to medical floor RN. Pt belongings packed up and Pt transfered to Medical floor room 327.
--- NOTE | 2021-10-21 19:24 | NUR ---
SHIFT SUMMARY PATIENT PCU TRANSFER. COVID +. INCONT OF BOWEL WITH FREQUENT LOOSE BM. IMMODIUM GIVEN PER JUL. ORTIZ CATHETER DRAINING TO GRAVITY CLEAR YOLLOW URINE. PRESSURE ULCER PRESENT ON COCCYX THAT IS TUNNELING. CALCIUM ALGINATE AND MEPLIX DRESSING APPLIED. SURGICAL CONSULTED AND NOT SURGICAL. DRESSING FROM SURGERY PRESENT ON RIGHT FOOT. C/O PAIN, MEDICATED PER JUL. PICC LINE PLACED AND RECEIVING TPN. C/O DISCOMFORT OF NEW PICC. VSS. REPORT GIVEN TO ONCOMING RN.
[2021-10-22 05:43] LABS: Hematocrit 31.1 % (33.0-51.0); Hemoglobin 9.9 g/dL (11.5-16.0); Mean Corpuscular HGB 28.6 pg (26.0-34.0); Mean Corpuscular HGB Conc 31.8 g/dL (31.5-36.5); Mean Corpuscular Volume 90 fL (80-100); Mean Platelet Volume 9.3 fL (9.1-12.4); Platelet Count 475 K/mm3 (150-400); RDW Coefficient Variation 12.8 % (11.7-14.2); RDW Standard Deviation 42.3 fL (35.1-46.3); Red Blood Cell Count 3.46 M/mm3 (3.80-5.20); White Blood Cell Count 7.49 K/mm3 (4.00-11.30)
--- NOTE | 2021-10-22 05:54 | NUR ---
SHIFT SUMMARY A/OX4, BEDREST, NWB TO RLE. DRESSING AND NADEEM WRAP TO R. FOOT, MEPILEX TO COCCYX WOUND. TPN RUNNING CONTINOUSLY. C/O 12/24 PAIN TO R. FOOT AND BOTTOM, MEDICATED PER EMAR. ORTIZ PATENT AND DRAINING TO GRAVITY. VSS, NO ACUTE CHANGES AT THIS TIME. BED IN LOWEST POSITION WITH CALL LIGHT IN REACH. WILL CONTINUE TO MONITOR AND REPORT TO ONCOMING RN.
[2021-10-22 06:02] LABS: Albumin, Blood 1.9 g/dL (3.4-5.0); Anion Gap 2 mmol/L (6-16); Blood Urea Nitrogen 9 mg/dL (8-24); Bun/Creatinine Ratio 34.1 (12.0-20.0); CO2, Blood 39 mmol/L (21-32); Calcium, Blood 8.4 mg/dL (8.5-10.1); Chloride, Blood 94 mmol/L (98-108); Creatinine, Blood 0.26 mg/dL (0.40-1.00); Glomerular Filtration Rate 132 (60-); Glucose, Blood 376 mg/dL (70-99); Magnesium, Blood 1.7 mg/dL (1.6-2.4); Phosphorus, Blood 2.5 mg/dL (2.5-4.9); Sodium, Blood 135 mmol/L (136-145)
[2021-10-22 06:29] LABS: BASOPHILS PERCENT MAN 0 % (0-2); EOSINOPHILS ABSOLUTE MAN 0.14 K/mm3 (0.00-0.68); EOSINOPHILS PERCENT MAN 2 % (0-6); LYMPHOCYTES ABSOLUTE MAN 2.77 K/mm3 (0.84-5.20); LYMPHOCYTES PERCENT MAN 37 % (21-46); MONOCYTES ABSOLUTE MAN 0.29 K/mm3 (0.16-1.47); MONOCYTES PERCENT MAN 4 % (4-13); NEUTROPHILS ABSOLUTE MAN 4.26 K/mm3 (1.96-9.15); SEG NEUTROPHILS PERCENT MAN 57 % (41-73); TOTAL CELLS COUNTED 100
--- NOTE | 2021-10-22 07:38 | NUR ---
MD CALL BLOOD GLUCOSE [phone]. DR ROBINS CALLED AND INFORMED. PT HAS HAD AM SNACKS OF PAULIE WILLIS AND KRISHNA. OK TO GIVE SCHEDULED/SS INSULIN. NO NEW ORDERS.
--- NOTE | 2021-10-22 12:45 | NUR ---
MD CALL DR ROBINS INFORMED OF BLOOD GLUCOSE [phone]. NO NEW ORDERS
--- NOTE | 2021-10-22 14:07 | NUR ---
This patient is known to me from her previous hospitalization here. She was sent home with plan to begin hospice services, as well applying for senior living care insurance. At the time, she had a follow up phone appt scheduled to review with senior living care insurance. Unknown if this was completed. Pt reported to multiple bedside nurses she declined hospice at her home because she is schedued for a "whipple procedure" at [facility]. At the time of this writing, there does not seem to be any procedure scheduled anywhere, especially due to her other health concerns. Palliative will continue with visits.
--- NOTE | 2021-10-22 16:58 | NUR ---
MD CALL [phone]. DR ROBINS INFORMED. NO NEW ORDERS.
--- NOTE | 2021-10-22 17:23 | NUR ---
WOUND ASSESSMENT AND PHOTOS IN HARD CHART. ORDERS IN [facility]. DID NOT ASSESS SURGICAL SIT D/T ORDER BY MD TO LEAVE DRESSING IN PLACE
--- NOTE | 2021-10-22 18:45 | NUR ---
SHIFT SUMMARY MS AUGUSTE IS ALERT AND ORIENTATED X4. SHE HAS BEEN PLEASANT AND COOPERATIVE WITH HER CARE TODAY. SHE HAS NO RESP DISTRESS, NOT COUGHING, ON RA. SHE HAS MULTIPLE SKIN WOUNDS, SEEN BY WOUND CARE NURSE TODAY, DRESSINGS DONE BY HEALTHCARE MANAGER AND NEW ORDERS IN FOR WOUND CARE. MS AUGUSTE IS ABLE TO TURN AND MOVE INDEPENTENTLY IN BED FOR PRESSURE RELIEF, ON AIR MATTRESS. R FOOT DRESSING LEFT UNDISTURBED. BLOOD SUGARS WERE HIGH TODAY, MD NOTIFIED AND INSULIN COVERAGE PRESCRIBED. PT HAS MALNUTRITION - CHRONIC DIARRHEA (INCONTINENT) IMMODIUM GIVEN, TPN INFUSING, PT EATING ALL OF MEAL TRAYS AND SNACKS. ORTIZ TO BEDSIDE DRAINAGE WITH CLEAR YELLOW URINE. BED LOW, CALL LIGHT IN REACH.
[2021-10-23 05:45] LABS: Hematocrit 31.5 % (33.0-51.0); Hemoglobin 9.9 g/dL (11.5-16.0); Mean Corpuscular HGB 28.3 pg (26.0-34.0); Mean Corpuscular HGB Conc 31.4 g/dL (31.5-36.5); Mean Corpuscular Volume 90 fL (80-100); Mean Platelet Volume 9.5 fL (9.1-12.4); Platelet Count 462 K/mm3 (150-400); RDW Coefficient Variation 12.6 % (11.7-14.2); RDW Standard Deviation 41.5 fL (35.1-46.3); White Blood Cell Count 7.87 K/mm3 (4.00-11.30)
[2021-10-23 06:06] LABS: Bun/Creatinine Ratio 50.6 (12.0-20.0); Calcium, Blood 8.8 mg/dL (8.5-10.1); Creatinine, Blood 0.32 mg/dL (0.40-1.00); Magnesium, Blood 1.8 mg/dL (1.6-2.4); Phosphorus, Blood 2.9 mg/dL (2.5-4.9); Potassium, Blood 4.6 mmol/L (3.5-5.5)
[2021-10-23 06:20] LABS: BASOPHILS PERCENT MAN 0 % (0-2); EOSINOPHILS PERCENT MAN 0 % (0-6); LYMPHOCYTES ABSOLUTE MAN 2.28 K/mm3 (0.84-5.20); LYMPHOCYTES PERCENT MAN 29 % (21-46); MONOCYTES ABSOLUTE MAN 0.23 K/mm3 (0.16-1.47); MONOCYTES PERCENT MAN 3 % (4-13); MYELOCYTE ABSOLUTE MAN 0.15 K/mm3 (0.00-0.00); MYELOCYTE PERCENT MAN 2 % (0-0); NEUTROPHILS ABSOLUTE MAN 5.19 K/mm3 (1.96-9.15); SEG NEUTROPHILS PERCENT MAN 66 % (41-73); TOTAL CELLS COUNTED 100
--- NOTE | 2021-10-23 07:21 | NUR ---
SHIFT SUMMARY - NO ACUTE CHANGES THROUGHOUT THIS SHIFT. PT HAS HAD MULTIPLE REQUESTS FOR PO FOOD/FLUIDS - PROVIDED PER REQUEST. PT MEDICATED FOR PAIN X2 - SEE EMAR, AND ZANAFLEX FOR MUSCLE SPASMS - SEE EMAR. PICC TO ANDREI DRAWS FOR LAB THIS AM - CAPS CHANGED. COCCYX WOUND DRESSING CHANGED X2 LAST NOC AFTER INCONTINENCE OF STOOL. ORTIZ IN PLACE - DRAINING WITHOUT COMPLICATIONS. PT DENIED HEADACHE, CHEST PAIN, SOB, NAUSEA, OR NUMBNESS AND TINGLING. PT IS FRAIL, PALE IN COLOR. PT HAS BEEN USING THE CALL LIGHT APPROPRIATELY. FLUIDS AT BEDSIDE. CALL LIGHT WITHIN REACH. BED IN LOW POSITION.
--- NOTE | 2021-10-23 18:54 | NUR ---
SHIFT SUMMARY 51 YEAR FEMALE ADMITTED WITH HYPERGLYCEMIA, SEVER SEPSIS, COVID +. PT HAS HX OF DM, DUMPING SYNDROME, CHRONIC PAIN AND METH POSITIVE ON ADMIT. PT HAS MX WOUNDS AND SURGICAL AND WOUND CONSULTS IN PLACE. PT HAS HAD SEVERAL LOOSE BMS TODAY AND HAS BEEN MEDICATED WITH IMMODIUM PRN TODAY. PT C/O PAIN AND HAS BEEN MEDICATED ON SCHEDULE TO HER COMFORT LEVEL. BS ELEVATED >400 T/O DAY AND THEN DROPPED TO 144 AT DINNER. PT EATS LARGE AMMOUNTS OF FOOD TODAY AND COUNTING CARBS FOR INSULIN COVERAGE. WALL TO WALL CARPET INSTALLER DID DISCUSS DIET WITH PT TODAY. NO OTHER CHANGES TO REPORT THIS SHIFT
[2021-10-24 07:41] LABS: Bun/Creatinine Ratio 46.4 (12.0-20.0); Calcium, Blood 8.3 mg/dL (8.5-10.1); Creatinine, Blood 0.39 mg/dL (0.40-1.00); Potassium, Blood 6.7 mmol/L (3.5-5.5)
--- NOTE | 2021-10-24 07:54 | NUR ---
OVERNIGHT PT REQUIRING PAIN MEDICATIONS FREQUENTLY. PT WITH NOTED PAIN TO WOUNDS. PT W/MULTIPLE LOOSE BOWEL MOVEMENTS. PT ENCOURAGED TO TURN Q2H AND PER PT SHE DOES TURN FREQUENTLY. PT C/O OF ITCHING WHEN SHE FEELS HOT AND REPORTS THAT THIS STARTED HAPPENING AFTER SHE WAS STARTED ON MIDODRINE. PT REQUESTING BENADRYL AND STATES THAT SHE TAKES THIS AT HOME. NOTIFIED WITH ORDER. PER CHAVA BENADRYL WITH SEVERE INTERACTION WITH POTASSIUM. PER PHARMACIST BENADRYL MAY SLOW DIGESTIVE SYSTEM AND MAY CAUSE DAMAGE TO STOMACH. DR. BOJORQUEZ MADE AWARE AND PER OKAY FOR PT TO TAKE. PER LAB THIS MORNING PT POTASSIUM 7.2 AND GLUCOSE 729 HOWEVER SPECIMEN POSSIBLY CONTAMINATED. LABS RE-ORDERED AND SPECIMEN CANCELED, FINGER BLOOD GLUCOSE 387. DR. ROBINS MADE AWARE OF K/BLOOD GLUCOSE AND NOTIFIED THAT AWAITING NEW RESULTS.
[2021-10-24 08:46] LABS: Calcium, Blood 8.6 mg/dL (8.5-10.1); Creatinine, Blood 0.35 mg/dL (0.40-1.00); Potassium, Blood 4.3 mmol/L (3.5-5.5)
[2021-10-24 10:02] LABS: Source, Urine Foley catheter
[2021-10-24 10:11] LABS: Appearance, Urine Clear (Clear); Bilirubin, Urine Neg (Neg); Blood, Urine 4+ (Neg); Color, Urine Yellow (P-Yellow); Glucose Qualitative, Urine 4+ (Neg); Ketones, Urine Neg (Neg); Leukocyte Esterase, Urine 2+ (Neg); Nitrite, Urine Neg (Neg); Protein, Urine Neg (Neg); Urobilinogen, Urine NORM (Normal)
[2021-10-24 10:50] LABS: Squamous Epithelial Cells Not Seen /hpf (Few)
[2021-10-24 10:51] LABS: Bacteria Few /hpf; Yeast/Fungi Urine Many /hpf
--- NOTE | 2021-10-24 13:47 | NUR ---
NURSE NOTE ADA DIET ORDERED FOR PATIENT. PATIENT HAS MULTIPLE SNACKS IN ROOM THAT DO NOT FOLLOW DIET THAT SHE IS REFUSING TO GIVE UP AT THIS TIME. WILL CONTINUE TO ENCOURAGE SNACKS AND MEALS THAT COMPLY WITH HER ADA DIET.
--- NOTE | 2021-10-24 19:26 | NUR ---
SHIFT SUMMARY PATIENT A&OX4. PATIENT STARTED SHIFT WHILE CRITICAL K+ AND BLOOD SUGAR. PATIENT CHANGED TO ADA DIET AND TPN GRADUALLY STOPPED. PATIENT VERY UPSET ABOUT CHANGE IN DIET. ATTEMPTED TO WORK WITH PATIENT IN DIET CHANGE, PROVIDING MENU FOR PATIENT TO REQUEST SPECIFIC ITEMS. C/O ANXIETY AND PAIN, MEDICATED PER JUL. SACRAL DRESSING CHANGED DURING BED BATH. AFTER ANXIETY MEDICATION PATIENT SLEEPY AND DID NOT EAT HER LUNCH. CHECKED CBG FOR DINNER AND CRITICAL OF 33. BROUGHT UP TO 141. LOW BP. PATIENT AGREED TO TAKE MEDICATION FOR HER LOW BLOOD PRESSURE. REPORT GIVEN TO ONCOMING RN.
--- NOTE | 2021-10-24 19:33 | NUR ---
NURSE NOTE CHECKED EVENING CBG. CRITICAL OF 33 AND PATIENT SLEEPY BUT AROUSABLE. GAVE OJ WITH SUGAR AND SHERRILL CRACKERS. RECHECKED AFTER 10 MIN, CBG 44. NOTIFIED DR AND DEXTROSE ORDERED. PRIOR TO GIVING DEXTROSE RECHECKED CBG AND 145. NOTIFIED DR AND DEXTROSE HELD WITH VERBAL TO RECHECK CBG IN ONE HOUR AND GIVE DEXTROSE IF LOW. ONE HOUR RECHECK 141.
[2021-10-25 06:42] LABS: Bun/Creatinine Ratio 60.9 (12.0-20.0); Calcium, Blood 8.5 mg/dL (8.5-10.1); Creatinine, Blood 0.35 mg/dL (0.40-1.00); Potassium, Blood 4.9 mmol/L (3.5-5.5)
--- NOTE | 2021-10-25 08:34 | NUR ---
PT BLOOD GLUCOSE MONITORED CLOSELY DUE TO HYPOGLYCEMIC EVENT IN PRIOR SHIFT. BG 67 AND PT ABLE TO EAT YOGURT AND DRINK ORANGE JUICE. AFTERWARDS PT BG IMPROVED TO 93. AT THIS TIME PT ALSO MORE ALERT AND NOT DROWSY. BP 81/55 AT 1829 AND RECHECKED WITH READING OF 106/68. DR. BOJORQUEZ MADE AWARE OF PT BLOOD GLUCOSE DOWNTERNDING FROM 145 TO 116. PER MD AT THAT TIME THERE WAS NO NEED FOR DEXTROSE ORDER CONT. TO MONITOR. MD ALSO NOTIFIED REGARDING BP. PT LATER COMPLAINING OF SEVER SUPRAPUBIC PAIN STATEST THAT SHE HAD A LOT OF PRESSURE WHEN SHE PEES, ORTIZ IN PLACE DRAINING APPROPRAITLY. PERCOCET GIVEN, MD NOTIFIED WITH ORDER FOR FENTANYL. FENTANYL GIVEN HOWEVER PT STATED LITTLE RELIEF. PT ALSO NOTED TO BE EATING LEFTOVERS FROM BREAKFAST. AT THIS TIME BG 225. EDUCATED PT REGARDING IMPORTANCE OF PT ONLY EATING DURING SCHEDULE TIMES INSULIN IS GIVEN ACCORDING TO MEALS EATEN. PT VERY UPSET STATING THAT THIS IS THE REASON SHE DID NOT WANT ADA DIET AND SAID MD WAS AWARE OF THIS. PT STATES FOOD IS THE ONLY THING SHE CAN CONTROL AND IS UPSET WE ARE LIMITING THIS. STATES THAT REMOVING TPN WAS ENOUGH. NOTIFIED PT OF NEED TO SPEAK WITH MD REGARDING THIS IN THE MORNING. PT CONTIUED TO ASK FOR SNACKS HOWEVER DUE TO BG EXPLAINED SHE COULD NOT HAVE MORE AND IN THE END COMPROMISED WITH SUGAR FREE PUDDING. PT ALSO STATES SHE WILL NOT BE TAKING ANYMORE MIDORINE SHE BELIEVES THIS IS WHAT MAKES HER ITCHY WHEN HOT. REMINDED PT OF LOW BP AND STATED THAT ONCE AGAIN SHE NEEDS TO SPEAK WITH MD TO COME UP WITH A PLAN SHE NEEDS MEDICATIONS TO SUPPORT BP.
--- NOTE | 2021-10-25 19:10 | NUR ---
SHIFT SUMMARY PATIENT A&O X4. WORKED WITH PT AND TOLERATED WELL. RECOMMENDING RECLINER FOR PATIENT. ORTIZ CATHERTER PRESENT DRAINING TO GRAVITY. C/O BLADDER PAIN, MEDICATED PER MAR. URINE ORANGISH COLOR AFTER MEDICATION. MULTIPLE WOUND INCLUDING SACRAL AND RIGHT FOOT. C/O OF PAIN, MEDICATED PER MAR. PATIENT C/O ITCHING WITH MIDODRONE, MEDICATED WITH ATARAX AND BENADRYL. MULTIPLE LOOSE STOOLS, BANDAGE ON SACRUM CHANGED WITH EACH BM. REPORT GIVEN TO ONCOMING RN.
[2021-10-26 05:12] LABS: Hematocrit 27.1 % (33.0-51.0); Hemoglobin 8.5 g/dL (11.5-16.0); Mean Corpuscular HGB 28.9 pg (26.0-34.0); Mean Corpuscular HGB Conc 31.4 g/dL (31.5-36.5); Mean Corpuscular Volume 92 fL (80-100); Mean Platelet Volume 9.5 fL (9.1-12.4); Platelet Count 311 K/mm3 (150-400); RDW Coefficient Variation 13.3 % (11.7-14.2); Red Blood Cell Count 2.94 M/mm3 (3.80-5.20); White Blood Cell Count 9.73 K/mm3 (4.00-11.30)
[2021-10-26 05:49] LABS: Bun/Creatinine Ratio 35.5 (12.0-20.0); Calcium, Blood 8.4 mg/dL (8.5-10.1); Creatinine, Blood 0.42 mg/dL (0.40-1.00); Potassium, Blood 4.6 mmol/L (3.5-5.5)
--- NOTE | 2021-10-26 07:28 | NUR ---
PT DRESSINGS CHANGED AND PICTURES IN JUL. PT CONTINUES TO NEED PAIN MEDICATIONS FREQUENTLY. COCCYX WOUND NOTED TO BE WORSENING. ENDORSED TO MORNING RN. PT ALSO WITH WOUND TO 2ND TOE ON LEFT FOOT. PER PT THIS IS CHRONIC AND THIS WAS DUE TO TIGHT FITTING SHOES. PT WITH INTERMITTENT COMPLAINS OF BLADDER PRESSURE.
--- NOTE | 2021-10-26 18:26 | NUR ---
SHIFT SUMMARY PATIENT A&0 X4. ABLE TO REPOSITION SELF AND TURN FOR CHANGING. INCONT OF STOOL WITH MULTIPLE LARGE LOOSE BM. MEDICATED PER MAR. SACRAL WOUND DRESSING CHANGED WITH EACH BM AND PHOTO UPDATED IN CHART. A AUXILIARY CONSULTS ARE PLACED FOR BOTH SACRAL AND RIGHT FOOT WOUND. C/O PAIN, MEDICATED MULTIPLE TIMES T/O SHIFT. C/O ITCHING WITH BP MED, MEDICATED PER JUL. ORTIZ CATHETER DRAINING TO GRAVITY ORANGE TINTED URINE FROM MEDICATION. PATIENT STILL C/O BLADDER PAIN WHEN URINATING. WILL CONTINUE TO MONITOR.
--- NOTE | 2021-10-27 07:29 | NUR ---
PT C/O OF ORTIZ LEAKING. STATES THAT THIS HAPPENED X2 DURING THE DAY HOWEVER IT WAS BELIEVED IT WAS STOOL. ORTIZ CHANGED PER PT REQUEST AND ALSO DUE TO ORTIZ BEING EXPOSED TO STOOL FREQUENTLY. SEA CARE DONE PRIOR TO REMOVING ORTIZ AND AFTER REMOVAL. PT TOLERATED WELL. COCCYX WOUND DETIRIORATING AND PT IN SEVERE PAIN DURING DRESSING CHANGE. PT GIVEN FENTANYL IV WITH GOOD RESPONSE. DRESSINGS CHANGED PER ORDER FOR BILAT KNEES. R FOOT DRESSING C/D/I. RADIOLOGIC TECHNICIAN TO SEE AND TREAT. PT ALSO STATING THAT SHE WOULD LIKE TO GO ON HOSPICE. PER PT SHE MENTIONED TO MD HOWEVER WAS TOLD SHE NEEDS TO SEE HER PRIMARY DOCTOR FOR THAT. ENDORSED TO ONCOMING RN PT REQUEST TO BE ON HOSPICE.
--- NOTE | 2021-10-27 18:44 | NUR ---
PATIENT A/OX4, UP WITH 1 ASSIST TO CHAIR AND BSC. MULTIPPLE INCONTINENT BOWEL MOVEMENTS THIS SHIFT. EATS LARGE AMOUNTS OF FOOD AND SS INSULIN GIVEN WITH CARB COVERAGE. BLOOD GLUCOSE STABLE TODAY. B/P REMAINS LOW, TAKING SCHEDULED MIDODRINE. PICC TO ANDREI NAGY. MULTIPLE SKIN ISSUES, WOUND CLINIC PLACED WOUND CARE ORDERS TO TREAT. PATIENT VERY ANXIOUS AND UPSET ABOUT NOT GETTING SNACKS THIS AFTERNOON, FITNESS PROFESSIONAL CALLED AND SPOKE WITH PATIENT. REPORTS PAIN 5-6/10 THROUGHOUT THE DAY. OXYCODONE AND PERCOCET GIVEN TO TREAT WITH MINIMAL RELEIF. LUNGS CLEAR, ON RA. ORTIZ PATENT AND DRAINING TO GRAVITY. HOPES TO GO TO SNF AT DISCHARGE.
--- NOTE | 2021-10-28 07:18 | NUR ---
PT A/OX4, DID NOT RECEIVE DINNER INSULIN PT WAS SLEEPY AND DID NOT EAT MUCH BG AT THE TIME 92. PT UP TO COMMODE AND COCCYX WOUND DRESSING CHANGED. PT WITH NO NEW COMPLAINS. OVERALL HAD A MERY.
--- NOTE | 2021-10-28 17:33 | NUR ---
PATIENT A/OX4, CALLS APPROPRIATELY FOR ASSISTANCE. ABLE TO TRANSFER WITH 1 ASSIST AND ALISSA HOOKER ON R FOOT. DRESSINGS CHANGED TODAY TO R FOOT AND KNEES AND REMAIN C/D/I. ORTIZ TO GRAVITY. PATIENT CONTINUES TO EAT LARGE AMOUNT OF FOOD AND IS HAVING MULTIPLE INCONTINENT BOWEL MOVEMENTS. DRESSING TO COCCYX WOUND CHANGED WITH EACH BM TO KEEP WOUND CLEAN AND COVERED. HOPING TO BE D/C'D TO SNF FOR THERAPY. PICC LINE TO ANDREI NAGY AND HARRISON BETWEEN ABX.
--- NOTE | 2021-10-29 06:24 | NUR ---
SHIFT SUMMARY - PT'S BEHAVIOR WAS APPROPRIATE THROUGHOUT THE NIGHT, UNTIL THIS AM WHEN SHE HAD A LAUNDRY LIST OF APPX 10 THINGS WRITTEN DOWN THAT SHE WANTED OUT OF THE PANTRY - SHE REPORTED SHE HAD ASKED ABOUT THESE ITEMS EARLIER, AND THEY WEREN'T PROVIDED (THIS RN WASN'T ASKED.) REVIEWED LIST WITH PT, REPORTED SOME ITEMS WOULD AFFECT HER CBG THIS AM - PT ADAMENT ABOUT WANTING WHAT WAS ON THE LIST. I PROVIDED DECAF COFFEE, HOT WATER, DIET PEPSI (WITH LITTLE ICE), NON-DAIRY COFFEE CREAMER, ICE CREAM, AND APPLESAUCE. PT UPSET THAT I DIDN'T BRING SPLENDA, HOWEVER SHE HAD AT LEAST 10 SPLENDA IN HER CUP IN THE ROOM. OTHER THAN THE ABOVE COMPLAINTS, PT WAS COOPERATIVE WITH CARE, MEDICATED WITH GOOD RELIEF PER EMAR. PT REPORTED BEING HAPPY EARLIER ABOUT HER WEIGHT GAIN WHILE IN THE HOSPITAL. DRESSINGS IN PLACE TO R FOOT, BILATERAL KNEES, AND MEPILEX TO COCCYX. WILL CONTINUE TO MONITOR UNTIL AM SHIFT CHANGE. PT IS CURRENTLY SLEEPLING. CALL LIGHT WITHIN REACH. BED IN LOW POSITION. DIRECTOR TRAFFIC AND PLANNING PROVIDED SPLENDA PER PT REQUEST THIS AM.
--- NOTE | 2021-10-29 19:19 | NUR ---
SHIFT SUMMARY- PT ALERT AND ORIENTED, LYING IN BED, CALL LIGHT IN REACH, JUST COMPLETED EATING HER DINNER. PT HAS SS INSULIN COVERAGE WELL CARB COUNT. 1 UNIT PER 15 CARBS. PT HAS HAD MULTIPLE INCONTINENT BM'S T/O THE DAY, FREQUENT LOOSE STOOLS. PT HAS MULTIPLE NEW MEDICATIONS TO HELP WITH PAIN MANAGEMENT, SEE EMAR FOR MORE INFO. PT HAS HAD COCCYX WOUND DRESSING CHANGES WITH EACH INCONTINENT STOOL D/T SOILING. PASSED ALL ON IN BEDSIDE REPORT TO NIGHT RN. PT IS ON AN ADA DIET AND DOES NOT LIKE THE RESTRICTIONS, SHE OFTEN GETS ANGRY WITH STAFF WHO DECLINE TO GIVE HER EVEN ONE OF THE TEN ITEMS ON HER LIST OF SNACKS (THE PT WRITES LISTS FO STAFF CAN GET EVERYTHING SHE WANTS FROM THE PANTRY).
--- NOTE | 2021-10-30 05:14 | NUR ---
PATIENT WITH LOW GRADE TEMP OVERNIGHT. MULTIPLE EPISODES OF INCONTINENT STOOL THIS EVENING. COCCYX WITH ROUND OPEN AREA THAT IS FREQUENTLY COMVERED WITH STOOL. MEPILEX REPLACED MULTIPLE TIMES. PATIENT WITH MULTIPLE SKIN ISSUES. SEE DOCUMENTATION. PATIENT PLEASANT AND COOPERATIVE WITH CARE OVERNIGHT. FOELY PATIENT WITH CLEAR YELLOW URINE. ANDREI PICC INTACT. NO ACUTE EVENTS OVERNIGHT.
[2021-10-30 06:18] LABS: Calcium, Blood 8.4 mg/dL (8.5-10.1); Creatinine, Blood 0.35 mg/dL (0.40-1.00); Potassium, Blood 4.2 mmol/L (3.5-5.5)
--- NOTE | 2021-10-30 20:09 | NUR ---
SHIFT SUMMARY- PT SEEMED MORE EVEN KEEL TODAY, NOT MANY UPS AND DOWNS WHEN COMPARED TO YESTERDAY. BG HAS BEEN MORE STABLE WELL, FINANCIAL INSTITUTION VICE PRESIDENT ASSISTED THE PT UP TO THE CHAIR FOR MEALS, PLAN WAS TO ATTEMPT A SHOWER BUT IT DID NOT HAPPEN TODAY, WILL REATTEMPT TOMORROW. PT DRESSINGS WERE REMOVED FROM HER KNEES IN PREP FOR THE SHOWER. CURRENTLY STERILIZATION SPECIALIST. BEDSIDE REPORT COMPLETED WITH NIGHT RN. PT UP IN THE CHAIR, REQUESTING PAIN MEDICATION AT THE TIME OF REPORT NIGHT RN TO MEDICATE. PT SITTING UP IN THE CHAIR, CALL LIGHT IN REACH, PT CALLLS APPROPRIATELY.
--- NOTE | 2021-10-31 04:19 | NUR ---
SHIFT SUMMARY: A/O X4, STANDBY ASSIST WITH AMBULATION. CONTINUED PAIN MANAGEMENT GOAL THROUGHOUT THE NIGHT. 2 LARGE BOWEL MOVEMENTS. COCCYX WOUND CLEANSED AND DRESSED WITH NEW MEPILEX. NEW MEPILEX DRESSINGS APPLIED TO BILATER KNEE/LEG WOUNDS. BED ALARM REMAINS ACTIVATED, BED IN LOW POSITION, CALL PARTIDA IN REACH.
--- NOTE | 2021-10-31 18:25 | NUR ---
SHIFT SUMMARY- PT HAS HAD NO ACUTE CHANGE T/O THE SHIFT. PT NEEDS ENCOURAGEMENT TO DO WHAT SHE CAN FOR HERSELF. IV FENTANYL DC'D, NO IV ACCESS ORDER RECIEVED DC PICC LINE COMPLETED TODAY BY WATER JET OPERATOR. PT HAS BEEN MEDICATED PRN WITH ALL PAIN MEDICATION ORDERED. WRITING ON THE BOARD WHAT MEDS ARE AVAILABLE AND WHEN. PT STILL NOT VERY HAPPY WITH HER DISCHARGE PLAN. PT IN BED, CALL LIGHT IN REACH, SHE CAN MAKE HER NEEDS KNOWN. WILL CTM AND PASS ON TO NIGHT RN IN BEDSIDE REPORT.
--- NOTE | 2021-11-01 03:56 | NUR ---
PATIENT WITH VSS ON RA OVERNIGHT. INCONTINENT OF STOOL. COCCYX WOUND CLEANSED AND MEPILEX REPLACED. PATIENT UNHAPPY WITH PAIN MEDICATION REGIME. UNHAPPY ABOUT HER DC PLAN. TEARFUL ABOUT HER LIFE SITUATION. COMFORT PROVIDED. NO ACUTE EVENTS OVERNIGHT.
--- NOTE | 2021-11-01 18:04 | NUR ---
SHIFT SUMMARY PT A&O X4 AND IN PLEASENT MOOD T/O SHIFT. MEDICATED PER EMAR FOR PAIN/ANXIETY. PT R/O FEELING ANXIOUS/DEPRESSED ABOUT HER LIVING SITUATION, SPOUSE MOVING CURRENT GIRLFRIEND INTO HOME. RESTED IN BED T/O SHIFT. WORKED WITH PHYSICAL THERAPY. TOLERATING PO INTAKE WELL. VSS. CALL LIGHT W/IN REACH.
[2021-11-01 23:13] LABS: Source, Urine Clean Catch
[2021-11-01 23:20] LABS: Bilirubin, Urine Neg (Neg); Blood, Urine 4+ (Neg); Glucose Qualitative, Urine Neg (Neg); Ketones, Urine Neg (Neg); Leukocyte Esterase, Urine 3+ (Neg); Nitrite, Urine Pos (Neg); Protein, Urine 2+ (Neg); Urobilinogen, Urine NORM (Normal)
[2021-11-01 23:28] LABS: Appearance, Urine Cloudy (Clear); Bacteria Mod /hpf; Color, Urine Yellow (P-Yellow); Squamous Epithelial Cells Not Seen /hpf (Few); White Blood Cells, Urine TNTC /hpf (0-5); Yeast/Fungi Urine Many /hpf
--- NOTE | 2021-11-02 05:36 | NUR ---
PT IS A/O, C/O PAIN TO BACKSIDE. LARGE COCCYX WOUND, AKA ON LEFT, RIGHT FOOT WOUND WRAPPED. SEVERAL LOOSE STOOLS. PYRIDIUM GIVEN FOR BLADDER PAIN, UA COLLECTED THIS SHIFT.
--- NOTE | 2021-11-02 15:53 | NUR ---
SHIFT SUMMARY PT A&OX4, MOOD UP AND DOWN T/O SHIFT. C/O PAIN MEDICATED PER EMAR, REPOSITIONING. COCCYX WOUND REDRESSED THIS SHIFT. ABULATED THE HALLS W/ EQUITY HOLDER UTILIZING GB AND FWW. THIS SHIFT. VSS. CALL LIGHT W/IN REACH, AWAITING DISCHARGE PLANNING @ THIS TIME.
--- NOTE | 2021-11-03 05:45 | NUR ---
PT IS A/O, MEDICATED FOR PAIN THIS SHIFT AND BLADDER SPASMS. DIARRHEA T/O SHIFT. COCCYX WOUND COVERED WITH MEPILEX. COMPLICATED D/C WORKING WITH CASE MANAGEMENT. HEATHER AC/HS.
--- NOTE | 2021-11-03 18:10 | NUR ---
SHIFT SUMMARY PT ALERT AND ORIENTED, FOLLOWS COMMANDS. PT STILL C/O PAIN DEPSITE CONTINUED PRN MEDICATION ADMINISTERED THROUGHOUT DAY. MD MADE AWARE, ATTEMPTING TO DECREASE PAIN MEDICATIONS. DRESSING TO RLE CHANGED TODAY PER ORDERS, SUTURES INTACT. DRESSING TO SACRUM CHANGED MULTIPLE TIMES TODAY WELL, MEPILEX IN PLACE. BLOOD PRESSURE FLUCTUATING, DOWN TO 77/56 AT ONE POINT, ASYMPTOMATIC, MD AWARE. SCHEDULED MIDODRINE ADMINISTERED. WILL CONTINUE TO MONITOR.
[2021-11-04 05:00] LABS: BASOPHILS ABSOLUTE AUTO 0.05 K/mm3 (0.00-0.23); BASOPHILS PERCENT AUTO 1 % (0-2); EOSINOPHILS ABSOLUTE AUTO 0.09 K/mm3 (0.00-0.68); EOSINOPHILS PERCENT AUTO 2 % (0-6); Hematocrit 32.9 % (33.0-51.0); Hemoglobin 10.4 g/dL (11.5-16.0); IMMATURE GRAN ABSOLUTE AUTO 0.01 K/mm3 (0.00-0.10); IMMATURE GRAN PERCENT AUTO 0 % (0-1); LYMPHOCYTES ABSOLUTE AUTO 1.86 K/mm3 (0.84-5.20); LYMPHOCYTES PERCENT AUTO 35 % (21-46); MONOCYTES ABSOLUTE AUTO 0.32 K/mm3 (0.16-1.47); MONOCYTES PERCENT AUTO 6 % (4-13); Mean Corpuscular HGB Conc 31.6 g/dL (31.5-36.5); Mean Corpuscular Volume 89 fL (80-100); Mean Platelet Volume 9.2 fL (9.1-12.4); NEUTROPHILS ABSOLUTE AUTO 2.99 K/mm3 (1.96-9.15); NEUTROPHILS PERCENT AUTO 56 % (41-73); Platelet Count 327 K/mm3 (150-400); RDW Coefficient Variation 13.9 % (11.7-14.2); RDW Standard Deviation 44.9 fL (35.1-46.3); Red Blood Cell Count 3.71 M/mm3 (3.80-5.20); White Blood Cell Count 5.32 K/mm3 (4.00-11.30)
[2021-11-04 05:26] LABS: Bun/Creatinine Ratio 46.5 (12.0-20.0); Calcium, Blood 8.8 mg/dL (8.5-10.1); Creatinine, Blood 0.34 mg/dL (0.40-1.00)
--- NOTE | 2021-11-04 06:14 | NUR ---
51 year old PT with diabetes malnutrition & multiple wounds including sacral decub that has poor healing related to fecal incontinent & urinary incontinent & constant moisture & malnutrition. PT has dumping type syndrome after 6th surgery to treat pancreatitis. PT lacks social support & resources. Does not have the ability to care for self & spouse reportedly not helpful with ADLS & wound care. Dc planning involved. Immodium x 2 to fecal incont. Medicated for pain x 2 ones with tylenol 650 mg & once with motrin 800 mg & oxycodone . Also had hydrazine x 1 & zanaflex x 1. PT declined Q 2 hrs toileting. Wound nearly always exposed to moisture for incontinence.
--- NOTE | 2021-11-04 10:08 | NUR ---
PT GIVES HERSELF INSULIN SHOTS, THIS AM PT WAS HANDED SHORT ACTING INSULIN OF 4 UNITS FOR A BG OF 248; WHEN PT GRABBED IT SHE ADDED 4 UNITS TO THE PEN AND INJECTED THE MED BEFORE RN COULD INTERVENE. STATING IT WAS ADDED ON FOR HER "CARB COUNT". EDUCATION WAS GIVEN AND RN WILL MONITOR.
--- NOTE | 2021-11-04 13:25 | NUR ---
Patient talks at length about her struggles with depression and anxiety and is very tearful as she does so. She is also very tearful about the dysfunctional relationship that she has with her spouse. She recounts the emotional pain and the betrayal she feels. She talks about how she feels like she is a shell of the person that she used to be and that she wants to rebuild her life. We explore ways that she might do that and next steps she could take to move her life forward. I encourage self-care with her body, mind and spirit and with her relationships, I reinforce helpful attitudes and practices and provide therapeutic listening and prayer. Pt reponds well and shows signs of having greater peace about her goals and her future. I will continue to remain available to patient and family.
--- NOTE | 2021-11-05 03:00 | NUR ---
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 Multiple dressing changes dailyrelated to soiling with feces entering stage 4 decub present on admission.
--- NOTE | 2021-11-05 03:52 | NUR ---
51 year old Female with hx of multiple pancreatic procedures continues with malnutrition, dumping type syndrome with oral intake continues to fave fecal & urinary incontinence contributing to decubitus ulcer nonhealing & her refusal to attempt q 2 hour toileting & constant moisure worsen wound. She has pain related to stage 4 sacral decub. Medicated multiple times for ulcer pain with helpful effect. Wound to rt le dressing clean dry intact changed within last several days. New dressing wound caRE TO COCCYX DCUB & ATTEMPT TO PROTECT FROM Feces & urine.
--- NOTE | 2021-11-05 13:08 | NUR ---
Patient is lying in bed and alert. I ask pt if she would like to hear soft guitar music. She states that she loves the sound of the guitar and would very much appreciate it. i play the first song and she states that it is ysabel and she is feeling very relaxed. I tell her that nothing is required and that if she wants to fall asleep to the music that is wonderful. I play two more songs and she begins to nod and by the 4th song she is snoring and doesn't move at all as I pack up and leave. I will continue to remain available to patient and family.
--- NOTE | 2021-11-05 18:47 | NUR ---
SHIFT SUMMARY MS AUGUSTE IS ALERT, ORIENTATED X 4. SHE IS WELL INFORMED ABOUT HER MEDICATIONS AND HEALTH CARE. SHE C/O A LOT OF PAIN TODAY, WHICH SHE SAID IS NOT WELL CONTROLLED ON TORADOL, TYLENOL, OXYCODONE. SHE WAS UPSET ABOUT FREQUENT DIARRHEA AND HAD 6 SACRAL DRESSING CHANGES AFTER DIARRHEA. FOOT DRESSING REDRESSED THIS AM - IT HAS SUTURES IN PLACE. I SPARKS DR MILAGRO MERAZ SAID I CAN REMOVE THEM, BUT BETWEEN THE DIARRHEA, SACRAL DRESSING CHANGES, EATING AND PAIN CONTROL I HAVEN'T HAD THE OPPORTUNITY TO REDO THE FOOT DRESSING AND REMOVE THE SUTURES SO PASSED ON TO NEXT SHIFT. BATTERY ASSEMBLER PLASTIC CALLED PER PT REQUEST AND SHE SPOKE WITH PT ON THE PHONE TO ANSWER QUESTIONS FOR HER. WOUND PHOTO OF SACRAL WOUND PUT ON CHART, BUT FOOT WOUND PHOTO NEEDED ON NEXT CHANGE. BED LOW, CALL LIGHT IN REACH, PT TURNING IN BED AND RELIEVING PRESSURE OFF HER SACRAL WOUND.
--- NOTE | 2021-11-06 15:30 | NUR ---
PT C/O FEELING TOO LOW ON CBG. CHECKED 29. APPLE JUICE AND ORANGE JUICE GIVEN ALONG WITH P BUTTER, AND PT ASK FOR ICECREAM. SUGAR AT 1600 WAS 103. PT STATES IS BECAUSE HAD TOO MUCH INSULIN AFTER LUNCH. SHE DID NOT FINISH ALL MEAL. WILL BE MORE UPFRONT WITH STAFF ON REAL AMT EATEN. AND WHAT PLANNED TO EAT IN A FEW MIN.
--- NOTE | 2021-11-06 19:20 | NUR ---
PT PLEASANT TODAY. HAD LOW BLOOD SUGAR EVENT THIS AFT. RESOLVED QUICKLY WITH FOOD. CLEANSED AND CHANGED WOUND DRESSING ON COCCYX SEVERAL TIMES TODAY DUE TO LOOSE STOOL. PT HAS BEEN CALLING REGULARLY FOR FOOD AND QUESTIONS. HELD MIDODRINE TWICE TODAY. NO OTHER NEW CONCERNS NOTED TODAY. BED IN LOW POSITION, C ALL LITE IN REACH, CALLS REGULARLY
[2021-11-06] MEDS ORDERED: THERA-D2000 UNIT PO (19:29)
[2021-11-06] MEDS ORDERED: ATOR40TA PO (19:30)
[2021-11-06] MEDS ORDERED: CLOP75 PO (19:32)
--- NOTE | 2021-11-06 19:33 | NUR ---
UPDATED MEDS RECONCILED IN MED LIST FROM DAUGHTER.
--- NOTE | 2021-11-07 05:14 | NUR ---
SHIFT SUMMARY: PT IS A/OX4. SHE WAS CALM, PLEASANT, AND COOPERATIVE WITH ALL CARE. SHE WAS ABLE TO USE THE FWW AND WALK THE HALLWAY. SHE DOES HAVE SOME C/O PAIN AND MEDICATED VIA EMAR. THE DRESSING TO HER RIGHT FOOT IS CDI. OTHE WOUNDS ON HER LEGS ARE WELT MAKER. SHE ALSO HAS A STAGE IV P.U. TO HER SACRAL AREA THAT WAS CLEANSED AND REDRESSED AND IS CDI. SHE USES HER CALL LIGHT FOR NEEDS AND WE'LL CONTINUE TO MONITOR.
--- NOTE | 2021-11-07 18:44 | NUR ---
PATIENT STILL PAINFUL THIS SHIFT. PAIN IS IN BACKSIDE AND FOOT. THE SUTURES THAT WERE IN THE BOTTOM OF HER FOOT WERE REMOVED TODAY, AND SOME WERE GROWN UNDER BUT THERE IS STILL A QUARTER SIZE OPEN AREA ON THE BOTTOM OF THE FOOT THAT SHOULD BE ASSESSED. DRESSING CHANGES ON COCCYX WERE DONE X 2 TODAY. AREA IS DEEP WITH INNER TISSUE EXPOSED. PATIENT HAS NOT NEEDED SLIDING SCALE WITH EACH MEAL, BUT DID COVER CARB INTAKE REGARDLESS OF BLOOD SUGAR AND HAS NOT HAD HYPOGLYCEMIC EVENTS TODAY. SHE HAS NO NEW CONCERNS, BUT IS WANTING SOMETHING TO REPLACE THE TORADOL WHICH WAS GIVEN LAST DOSE TODAY. SHE DID HAVE KENNETH X 2 THIS SHIFT AND IT WAS EFFECTIVE BRINING PAIN DOWN TO 4-6.
--- NOTE | 2021-11-07 19:57 | NUR ---
DRESSING CHANGE TO BUTTOCKS AFTER SOILING WITH STOOL. WOUND CLEANSED WITH WOUND CLEANSER, PATTED DRY AND COVERED FIRST WITH ALGINATE, THEN MEPITEL AND FINALLY WITH MEPILEX DRESSING. PATIENT TOLERATED WELL.
--- NOTE | 2021-11-08 05:49 | NUR ---
TOMMY WAS AWAKE SITTING ON THE SIDE OF THE BED MOST OF THE NIGHT. SHE HAS HAD TWO LOOSE INCONTINENT STOOLS WHICH ALLOWED THIS RN TO SEE THE WOUND ON HIS SACRUM AND REDRESS IT WITH ALGINATE AND MEPILEX. PAIN MODERATELY CONTROLLED WITH 10MG OXYCODONE TWICE DURING THE SHIFT.
--- NOTE | 2021-11-08 22:33 | NUR ---
RN TO RN PATIENT TRANSFER. REPORT TAKEN FROM RICH AMADOR.
--- NOTE | 2021-11-09 04:33 | NUR ---
SHIFT SUMMARY PATIENT HAD NO ACUTE CHANGES. AXOX 3 AND INDEPENDENT IN ROOM WITH FWW. CBG 72. PIV REMAINS INTACT. VSS/AFEBRILE. REPORTED COCCYX PAIN AND OXYCODONE 10 MG GIVEN PER EMAR. DENIES CHEST PAIN, SOB, AND N/V. STAGE IV PRESSURE ULCER TO COCCYX. SCATTER WOUNDS-PICTURES IN CHART TO BLE. CALL LIGHT IN REACH. BED IN LOWEST POSITION. WILL CONTINUE TO MONITOR UNTIL DAY SHIFT NURSE ASSUMES CARE.
--- NOTE | 2021-11-10 04:35 | NUR ---
SUMMARY: PT A/OX4, CALLS APPROPRIATELY TO SPECIFY NEEDS AND IS PLEASANT AND COOPERATIVE W/CARE. SHE AMBULATES INDEPENDENTLY W/FWW AND OCCASIONALLY CALLS FOR ASSIST W/CARE NEEDS, PT AWARE OF LIMITATIONS. FREQ LOOSE BM'S PERSIST, SEA CARE AND ATTENDS CHANGED PRN AND IMMODIUM RECIEVED PER EMAR. STAGE 4 COCCYX WOUND CLEANSED W/SKINTEGRITY AND MEPILEX DX CHANGED. PT MEDICATED W/OXYCODONE FOR TOLERABLE RELIEF OF ABDO/BUTTOCKS PAIN. TIZANIDINE AND MELATONIN ALSO RECIEVED AT HS PER PT REQUEST. SHE SLEPT MAJORITY OF NOCTE. NO ACUTE CHANGES, VSS/AFEBRILE. PLACEMENT PENDING. WCTM AND REPORT TO DAY RN.
--- NOTE | 2021-11-10 18:23 | NUR ---
NO ACUTE CHANGES THIS SHIFT. PATIENT TO D/C TOMORROW TO [facility]. DRESSINGS CHANGED TO SACRAL WOUND, R FOOT AND ABRASIONS TO BLE. ACHS BLOOD SUGAR. PATIENT REFUSED TO TAKE MORE THAN 30 UNITS SEMGLEE ALTHOUGH IT WAS INCREASED TO 32 UNITS TODAY. BLOOD SUGARS STABLE THIS SHIFT. COVERAGE PER SS AND CARB COVERAGE. CONTINUES TO BE NWB ON R FOOT. UP WITH FWW, GB AND 1 ASSIST.
--- NOTE | 2021-11-11 05:22 | NUR ---
CHILD CARE DIRECTOR SUMMARY ADMITTED FOR HYPERGLYCEMIA. THE PATIENT IS FULL CODE. SHE IS ALERT AND ORIENTED AND COOPERATIVE WITH CARE THIS SHIFT. PT MEDICATED X2 FOR PAIN. PT HAD ONE EPISODE OF INCONTINENCE DURING THE SHIFT, REQUIRING CLEANUP IN THE BATHROOM AND LINEN CHANGE. SHE STILL HAS A LARGE WOUND TO THE COCCYX, REQUIRING CONTINUAL MEPILEX CHANGES. SHE IS A SBA TO THE BATHROOM.
--- NOTE | 2021-11-11 14:59 | NUR ---
WALKED PATIENT DOWN TO THE [facility] AND THEY REFUSED TO TAKE HER WITH ALL OF THE BELONGINGS SHE HAD WITH HER. PATIENT BROUGHT UP TO THE ROOM ALONG WITH HER BELONGINGS SO OTHER TRANSPORTATION COUOLD BE SET UP TO ACCOMODATE HER THINGS.
--- NOTE | 2021-11-11 16:19 | NUR ---
PATIENT D/C'D TO HOME WITH HOME HEALTH. WILL BE STAYING AT [facility]. WOUND CARE SUPPLIES SENT WITH PATIENT. DC INSTRUCTIONS AND EDUCATION DISCUSSED WITH PATIENT AND COPY PROVIDED. RX MEDICATIONS FAXED TO [facility]. HARD SCRIPTS FOR OXYCODONE AND LYRICA GIVEN TO PATIENT. PATIENT DENIES ANY FURTHER QUESTIONS. BELONGINGS SENT WITH PATIENT. SHE WAS TRANSPORTED VIA [facility] THAT WILL TAKE HER TO [facility] TO [facility].
== END 2021-11-11 14:43 | disposition home health service (06) | DRG 871 ==
LOC: ER 19:31 → PCU 19:32 → ERHOLD 19:32 → PCU 10-17 08:44 → MEDS 10-17 12:51 → PCU 10-17 12:51 → MEDS 10-21 11:08
PROVIDERS: Emergency Medicine; Family Medicine; Internal Medicine; Physician Assistant; Podiatrist Foot & Ankle Surgery; Student in an Organized Health Care Education/Training Program; ADMIT Family Medicine
PROC: 3E03329 Introduction of Other Anti-infective into Peripheral Vein, Percutaneous Approach (ICD-10-PCS; 2021-10-17)
PROC: 8E0ZXY6 Isolation (ICD-10-PCS; 2021-10-17)
PROC: 0J9Q0ZZ Drainage of Right Foot Subcutaneous Tissue and Fascia, Open Approach (ICD-10-PCS; principal; 2021-10-18 07:30)
PROC: 0H9MXZZ Drainage of Right Foot Skin, External Approach (ICD-10-PCS; 2021-10-20)
PROC: 0J9Q0ZZ Drainage of Right Foot Subcutaneous Tissue and Fascia, Open Approach (ICD-10-PCS; 2021-10-20)
DX: A40.8 Other streptococcal sepsis (principal); U07.1 COVID-19; L02.611 Cutaneous abscess of right foot; Z68.1 Body mass index [BMI] 19.9 or less, adult; E87.2 Acidosis; K86.1 Other chronic pancreatitis; E44.0 Moderate protein-calorie malnutrition; R65.20 Severe sepsis without septic shock; Z51.5 Encounter for palliative care; Z59.00 Homelessness unspecified; F41.9 Anxiety disorder, unspecified; K52.9 Noninfective gastroenteritis and colitis, unspecified; E11.65 Type 2 diabetes mellitus with hyperglycemia; R94.31 Abnormal electrocardiogram [ECG] [EKG]; L89.152 Pressure ulcer of sacral region, stage 2; F17.210 Nicotine dependence, cigarettes, uncomplicated; F15.10 Other stimulant abuse, uncomplicated; R30.0 Dysuria; E11.628 Type 2 diabetes mellitus with other skin complications; E11.621 Type 2 diabetes mellitus with foot ulcer; L97.519 Non-pressure chronic ulcer of other part of right foot with unspecified severity; Z71.51 Drug abuse counseling and surveillance of drug abuser; Z91.14 Patient's other noncompliance with medication regimen; Z90.49 Acquired absence of other specified parts of digestive tract; Z98.890 Other specified postprocedural states; Z79.4 Long term (current) use of insulin; Z79.899 Other long term (current) drug therapy
CPT/HCPCS: 36415; 36416; 51702; 71045; 73630; 80048; 80053; 80069; 80202; 81001; 82010; 82947; 83036; 83605; 83690; 83735; 84100; 84478; 85025; 85027; 87040; 87070; 87075; 87076; 87077; 87086; 87106; 87185; 87186; 87205; 93005; 93010; 94760; 96365; 96366; 96367; 96372; 96375; 97110; 97116; 97162; 97166; 97530; 97535; 99285-25; A9270; G0378; J0295; J0610; J0692; J0696; J1100; J1170; J1650; J1815; J1885; J2001; J2310; J2370; J2405; J2704; J3010; J3370; J3411; J3475; J3480; J7030; J7040; J7042; J7060; J7070; J7120; U0004